=== PATIENT | female | born 1955 | race Caucasian/White ===

== ENCOUNTER 2019-11-11 12:22 | Outpatient (CLI) | payer MEDICARE, SELFPAY ==
--- NOTE | ~2019-11-11 | CT_ITS ---
EXAMINATION: CT abdomen pelvis w con DATE: 11/11/2019 13:52 INDICATION: Abdominal pain TECHNIQUE: Computed tomography (CT) of the abdomen and pelvis was performed with 100 cc Omnipaque 350 intravenous contrast. Automated exposure control and iterative reconstruction technique were employe d. Exam dose: 732.63 mGy-cm total exam DLP. COMPARISON: None. FINDINGS: The lung bases are clear of infiltrate or consolidation. Normal heart size. No pericardial effusion. Status post cholecystectomy. No bile duct or pancreatic duct dilatation. No hepatic, splenic, pancreatic, adrenal or renal space occupying mass lesion is detected. No bile d uct or pancreatic duct dilatation. 2.5 cm left renal cyst. No urinary tract or calculus or hydroureteronephrosis. Normal caliber of the abdominal aorta. No intraperitoneal or retroperitoneal or pelvic mass lesion o r lymphadenopathy. Normal appendix. Diverticulosis of the left colon. There is sigmoid colon wall thickening and pericolic fat stranding, There are abscess collections me asuring 2.3 x 5 cm, 1.2 x 1.7 cm, 1.4 x 1.7 cm. There is thickening of the urinary bladder wall, with a small adjacent abscess. There is diffuse idiopathic skeletal hyperostosis of the lower thoracic and lumbar spine. IMPRESSION: Sigmoid diverticulitis with multiple diverticular abscesses Reviewed, dictated and finalized at [facility]. Reviewed, dictated and finalized at [facility].
[2019-11-11 13:08] LABS: Basophils Absolute Auto 0.1 K/mm3 (0.0-0.1); Basophils Percent Auto 0.6 % (0.2-1.2); Eosinophils Absolute Auto 0.2 K/mm3 (0-0.3); Eosinophils Percent Auto 1.7 % (0-4.4); Hematocrit 37.8 % (37.0-47.0); Hemoglobin 11.8 g/dL (12.0-15.0); Immature Granulocyte Absolute 0.05 K/mm3 (0.00-0.031); Immature Granulocyte Percent A 0.4 % (0-0.5); Lymphocytes Absolute Auto 1.49 K/mm3 (0.9-3.2); Mean Corpuscular HGB Conc 31.2 g/dl (32-36); Mean Corpuscular Hemoglobin 25.8 pg (26-34); Mean Corpuscular Volume 82.5 fl (80-100); Mean Platelet Volume 8.8 fl (7.4-10.4); Monocytes Absolute Auto 0.9 K/mm3 (0.1-0.6); Monocytes Percent Auto 7.7 % (2.6-8.5); Neutrophils Absolute Auto 8.8 K/mm3 (1.3-6.7); Neutrophils Percent Auto 76.6 % (45.5-73.1); Platelet Count Result 408 k/mm3 (150-375); Red Blood Count 4.58 M/mm3 (4.2-5.4); Red Cell Distribution Width 14.1 % (11.5-14.5); White Blood Count 11.5 K/mm3 (4.5-10.0)
[2019-11-11 13:20] LABS: Alanine Aminotransferase 9 U/L (4-35); Albumin Level 3.9 g/dL (3.5-5.1); Alkaline Phosphatase 100 U/L (38-126); Amylase 47 U/L (30-110); Anion Gap 8 mmol/L (8-16); Aspartate Amino Transferase 17 U/L (14-36); Bilirubin,Total 0.6 mg/dL (0.2-1.3); Blood Urea Nitrogen 15 mg/dL (7-17); Calcium 9.2 mg/dL (8.4-10.2); Carbon Dioxide 31 mmol/L (22-30); Chloride 98 mmol/L (98-107); Cholesterol 150 mg/dL (0-200); Estimated Glomerular Filt Rate 50; Glucose 110 mg/dL (65-105); HDL Direct 31 mg/dL; Lipase 42 U/L (23-300); Potassium 3.9 mmol/L (3.4-5.0); Sodium 137 mmol/L (137-145); Triglycerides 118 mg/dL (<150)
[2019-11-11 13:31] LABS: LDL Cholesterol Direct 89 mg/dL
[2019-11-11 14:12] LABS: Vitamin D 25 Hydroxy 35.8 ng/mL
== END 2019-11-11 12:23 | disposition home or self-care (01) ==
PROVIDERS: PCP Internal Medicine; Visit Provider Internal Medicine
DX: E78.2 Mixed hyperlipidemia (principal); E55.9 Vitamin D deficiency, unspecified; K57.32 Diverticulitis of large intestine without perforation or abscess without bleeding; N28.1 Cyst of kidney, acquired
CPT/HCPCS: 36415; 74177; 80053; 80061; 82150; 82306; 83690; 85025; Q9967

== ENCOUNTER 2020-01-12 16:28 | Outpatient (CLI) | payer MEDICARE, SELFPAY ==
--- NOTE | ~2020-01-12 | CT_ITS ---
EXAMINATION: CT abdomen pelvis w con EXAM DATE: 01/12/2020 16:56 INDICATION: Diverticulitis of the colon. TECHNIQUE: Spiral CT of the abdomen and pelvis was performed following intravenous injection of 100 m L Omnipaque 350. Axial, coronal and sagittal images were reviewed. The dose-length product (DLP) fo r this examination was 977.42 mGy-cm. The exposure was tailored according to patient size (auto mA e xposure control), and iterative reconstruction (ASIR) was used as additional dose reduction technique . Comparison is made to prior examination from 11/11/2019. FINDINGS: There is rather extensive descending and sigmoid colonic diverticulosis again noted. Inflam mation within the central left aspect of the pelvis with multiple fistulous tracts identified to niko apsed abscess cavity (previously seen fluid within this pocket on prior study has essentially resolve d). This is also contiguous to the left ovary and left ureter likely causing stricturing of the left ureter, which would explain the mild left-sided hydroureteronephrosis. There is moderate sigmoid colo jaime wall thickening, probably edema. Inflammatory cancer not excludable. Also, probable fistulous tract identified to the bladder with diffuse bladder wall thickening in the right superolateral aspect contiguous to this. The liver, spleen, adrenal glands and pancreas are unremarkable. There are cholecystectomy clips. There is no retroperitoneal or pelvic lymphadenopathy. There is moderate scattered arterioscleroti c disease. The appendix is normal. The stomach and small bowel are unremarkable. There is expected amount of colonic stool. No free intraperitoneal gas. The heart is normal in size. There are no pericardial or pleural effusions. The lung bases are unremarkable. There are no osteoblastic or os teolytic lesions identified. IMPRESSION: 1. Pelvic phlegmon, with near resolution of previously seen abscess. Evidence of numerous pelvic fi stulous tracts to this phlegmon, and also probably to the bladder. Likely sequela from complicated di verticulitis. 2. Mild resultant left-sided hydroureteronephrosis. Reviewed, dictated and finalized at [facility]. IMPRESSION: 1. Pelvic phlegmon, with near resolution of previously seen abscess. Evidence of numerous pelvic fistulous tracts to this phlegmon, and also probably to the bladder. Likely sequela from complicated diverticulitis. 2. Mild resultant left-sided hydroureteronephrosis.
[2020-01-12 16:52] LABS: Estimated Glomerular Filt Rate 38
== END 2020-01-12 16:29 | disposition home or self-care (01) ==
PROVIDERS: PCP Internal Medicine; Visit Provider Internal Medicine
DX: K57.80 Diverticulitis of intestine, part unspecified, with perforation and abscess without bleeding (principal)
CPT/HCPCS: 74177; Q9967

== ENCOUNTER 2020-02-05 00:43 | Outpatient (CLI) | payer MEDICARE, SELFPAY ==
[2020-02-05 20:28] LABS: SARS-CoV-2 RNA PCR Negative
== END 2020-02-05 00:44 | disposition home or self-care (01) ==
LOC: ANHCOVIDDT 00:44
PROVIDERS: PCP Internal Medicine; Visit Provider Internal Medicine Gastroenterology
DX: Z01.812 Encounter for preprocedural laboratory examination (principal); Z20.828 Contact with and (suspected) exposure to other viral communicable diseases
CPT/HCPCS: 87635; C9803; U0003

== ENCOUNTER 2020-02-08 00:30 | Day surgery (SDC) | payer MEDICARE, SELFPAY ==
[2020-02-02 10:23] VITALS: BMI 28.5
[2020-02-08 07:27] VITALS: BP 146/54; PULSE 105; RESP 18; TEMP 37.4; O2SAT 95; BMI 31.5
[2020-02-08] MEDS: LACTATED RINGERS 1,000 ML 150 ML IV CONT (07:30)
--- NOTE | 2020-02-08 08:12 | P.CONGI_ITS ---
Assessment and Plan Assessment and plan (1) Diverticulitis of intestine with abscess: Code(s): K57.80 - Diverticulitis of intestine, part unspecified, with perforation and abscess without bleeding Status: Acute Assessment and Plan: Patient has had diverticulitis with pericolonic abscess. Has improved after antibiotics. Plan is for a high-fiber diet. Colonoscopy will be performed today to ensure resolution of infection. As well as no other pathology in this region. GI Consult Note Consult date/time: 02/08/20 08:12 HPI: Loreto Sawyer is a 64 year old female Seen in evaluation at the request of Dr. Rik Bates. patient has a recent bout of diverticulitis. Has had lo wer left lower quadrant abdominal pain initially October of 2019. A CT scan at that time revealed pericolonic diet diverticulitis and abscess. Patient had a follow-up CT scan raising the question of a possible fistula from: To: Period patient subsequently was given additional course of levofloxacin 500 mg p.o. daily for 10-14 days. She states since that time has had no additional pain. However taking preparation for colonoscopy did cause her to have recurrent left lower quadrant discomfort. Her bowel habits have remained normal. She denies any bleeding or fever. Review of Systems Review of Systems: All systems reviewed & are unremarkable except as noted in HPI and below PMFSH Family History Family History (Updated 04/23/17 @ 10:37 by DOCTOR UNKNOWN) Mother Hypertension Sibling Hypertension Family history of elevated blood lipids Family history of diabetes mellitus in first degree relative Father Cerebrovascular accident Family history of diabetes mellitus in first degree relative Diabetes mellitus Hypertension Family history of arthritis Social History Social History Smoking status: Never smoker Second hand tobacco smoke exposure: No Alcohol intake: never Living arrangements: alone Spiritual care concerns: No Meds Home Medications and Allergies Home Medications Medication Instructions Recorded Confirmed Type baclofen 10 mg tablet 10 mg PO DAILY 90 Days #270 tablet 06/25/19 02/08/20 Rx diclofenac sodium 75 mg 75 mg PO BID 90 Days #180 tablet 06/25/19 02/08/20 Rx tablet,delayed release pantoprazole 40 mg tablet,delayed 40 mg PO BID 90 Days #180 tablet 09/24/19 02/08/20 Rx release Allergies Allergy/AdvReac Type Severity Reaction Status Date / Time No Known Allergies Allergy Verified 02/08/20 07:26 Vital Signs Vital Signs - 24 hr 02/08/20 07:27 Temperature 99.4 F Pulse Rate 105 H Respiratory Rate 18 Blood Pressure 146/54 H Pulse Oximetry 95 Exam Narrative: Exam Narrative: Physical exam reveals patient to be alert. Vital signs stable. HEENT exam unremarkable. Lungs are clear to auscultation and percussion. Heart is without murmur or extra sounds. Abdominal exam bowel sounds are present soft nontender with no organomegaly. Digital external rectal exam is normal.
--- NOTE | 2020-02-08 08:22 | WPDANESEPPF ---
Anes - Initial Pre Proc Eval Procedure: Operation Date: 02/08/20 08:30 Proposed Procedures p Colonoscopy - Lance Guadalupe MD Date/Time: 02/08/20 08:22 Surgeon: Lance Guadalupe MD Pre Op Diagnosis: diverticulitis Patient Data Age: 64 Gender: F Height: 5 ft 5 in Weight: 86 kg Last Vital Signs Temp 37.4 C 02/08/20 07:27 Pulse 105 H 02/08/20 07:27 Resp 18 02/08/20 07:27 BP 146/54 H 02/08/20 07:27 Pulse Ox 95 02/08/20 07:27 Allergies Allergy/AdvReac Type Severity Reaction Status Date / Time No Known Allergies Allergy Verified 02/08/20 07:26 Home Medications Medication Instructions Recorded Confirmed Type baclofen 10 mg tablet 10 mg PO DAILY 90 Days #270 tablet 06/25/19 02/08/20 Rx diclofenac sodium 75 mg 75 mg PO BID 90 Days #180 tablet 06/25/19 02/08/20 Rx tablet,delayed release pantoprazole 40 mg tablet,delayed 40 mg PO BID 90 Days #180 tablet 09/24/19 02/08/20 Rx release Patient hx anesthesia problems: none Family hx anesthesia problems: none PMFSH Past Medical History Medical History Chronic GERD Hypertension Mixed hyperlipidemia Family History Family History Mother Hypertension Sibling Hypertension Family history of elevated blood lipids Family history of diabetes mellitus in first degree relative Father Cerebrovascular accident Family history of diabetes mellitus in first degree relative Diabetes mellitus Hypertension Family history of arthritis Social History Social History (Updated 02/08/20 @ 08:23 by Jaren Salinas MD) Smoking status: Current every day smoker Second hand tobacco smoke exposure: No Alcohol intake: never Living arrangements: alone Spiritual care concerns: No Anes - Eval Final PreProcedure Day of Procedure 02/08/20 08:22 Patient weight: obese Heart: regular rate and rhythm Lungs: decreased breath sounds Airway: Mallampati scale class II Neurological: alert and oriented Last oral intake: >/= 8 hours ASA classification: III Emergent: no Anesthetic plan: proceed Anesthesia type and monitoring: general GIVS and standard monitoring Informed Consent: The patient's anesthetic plan and its attendant risks and benefits were discussed with the patient/family/POA. Questions were solicited and answers provided to the satisfaction of the patient/family/POA.
[2020-02-08 09:15] VITALS: BP 108/47; PULSE 78; RESP 22; O2SAT 92
[2020-02-08 09:25] VITALS: BP 98/48; PULSE 81; RESP 20; O2SAT 95
[2020-02-08 09:35] VITALS: BP 111/58; PULSE 82; RESP 20; O2SAT 95
--- NOTE | 2020-02-08 09:37 | SUR.PHASEII ---
Appointment made for Dr. Lao's office. Facesheet and operative note faxed.
== END 2020-02-08 09:55 | disposition home or self-care (01) ==
PROVIDERS: PCP Internal Medicine; Visit Provider Internal Medicine Gastroenterology
PROC: 0DJD8ZZ Inspection of Lower Intestinal Tract, Via Natural or Artificial Opening Endoscopic (ICD-10-PCS; CPT 45378; principal; 2020-02-08 08:30)
DX: R93.3 Abnormal findings on diagnostic imaging of other parts of digestive tract (principal); K56.699 Other intestinal obstruction unspecified as to partial versus complete obstruction; K57.30 Diverticulosis of large intestine without perforation or abscess without bleeding; K21.9 Gastro-esophageal reflux disease without esophagitis; F17.200 Nicotine dependence, unspecified, uncomplicated
CPT/HCPCS: 45378; J2704; J7120

== ENCOUNTER 2020-02-24 11:14 | Outpatient (CLI) | payer MEDICARE, SELFPAY ==
[2020-02-24 12:06] LABS: Basophils Absolute Auto 0.1 K/mm3 (0.0-0.1); Basophils Percent Auto 0.5 % (0.2-1.2); Eosinophils Absolute Auto 0.1 K/mm3 (0-0.3); Eosinophils Percent Auto 1.1 % (0-4.4); Hematocrit 31.2 % (37.0-47.0); Hemoglobin 9.5 g/dL (12.0-15.0); Immature Granulocyte Absolute 0.05 K/mm3 (0.00-0.031); Immature Granulocyte Percent A 0.5 % (0-0.5); Lymphocytes Absolute Auto 1.06 K/mm3 (0.9-3.2); Lymphocytes Percent Auto 9.7 % (18.3-44.2); Mean Corpuscular HGB Conc 30.4 g/dl (32-36); Mean Corpuscular Hemoglobin 25.3 pg (26-34); Monocytes Absolute Auto 0.9 K/mm3 (0.1-0.6); Monocytes Percent Auto 8.2 % (2.6-8.5); Neutrophils Absolute Auto 8.7 K/mm3 (1.3-6.7); Platelet Count Result 338 k/mm3 (150-375); Red Blood Count 3.76 M/mm3 (4.2-5.4); Red Cell Distribution Width 14.8 % (11.5-14.5); White Blood Count 10.9 K/mm3 (4.5-10.0)
[2020-02-24 12:12] LABS: Add Urine Microscopic? YES; Appearance Urine Clear (Clear); Bilirubin Urine Negative (Negative); Blood Urine Negative (Negative); Color Urine Yellow (Yellow); Glucose Urine UA Negative (Negative); Ketones Urine Negative (Negative); Leukocyte Esterase Ur Negative LEU/UL (Negative); Mucus Urine Rare /lpf; Nitrate Urine Negative (Negative); Protein Urine 1+ mg/dL (Negative); RBC Urine 0-2 /hpf (0-2); Specific Grav Ur 1.015 (1.001-1.035); Squamous Epithelial Cell Urine Rare /hpf (Few); Urobilinogen Urine Negative mg/dL (<2.0); WBC Urine 0-3 /hpf
== END 2020-02-24 11:15 | disposition home or self-care (01) ==
PROVIDERS: PCP Internal Medicine; Visit Provider Surgery
DX: K57.32 Diverticulitis of large intestine without perforation or abscess without bleeding (principal)
CPT/HCPCS: 36415; 81001; 85025

== ENCOUNTER 2020-02-24 12:40 | Outpatient (CLI) | payer MEDICARE, SELFPAY ==
--- NOTE | ~2020-02-24 | CT_ITS ---
EXAMINATION: CT abdomen pelvis w con EXAM DATE: 02/24/2020 13:10 INDICATION: Abdominal pain, unspecified. TECHNIQUE: Spiral CT of the abdomen and pelvis was performed following intravenous injection of 100 m L Omnipaque 350. Axial, coronal and sagittal images were reviewed. The dose-length product (DLP) fo r this examination was 682.12 mGy-cm. The exposure was tailored according to patient size (auto mA e xposure control), and iterative reconstruction (ASIR) was used as additional dose reduction technique . Comparison is made to prior examination from 01/12/2020. FINDINGS: Again there is pelvic phlegmon, now containing a cavity with air-fluid level measuring abou t 3 cm in diameter. This is causing mass effect on the left ureter, mild left hydronephrosis. There a re multiple spiculations of soft tissue density extending between this and the rectosigmoid colon. Al so there is approximately 2 x 4 cm fluid pocket probably connected to this located more inferiorly, a nterior to the uterus and above the bladder. Probably complications of diverticulitis given the moder ate sigmoid diverticulosis. No free intraperitoneal air. The liver, spleen, adrenal glands and pancreas are unremarkable. Gallbladder is unremarkable. No bi liary obstruction. There is no retroperitoneal or pelvic lymphadenopathy. There is moderate scat tered arteriosclerotic disease. The appendix is normal. The stomach and small bowel are unremarkable. There is expected amount of c olonic stool. No free intraperitoneal gas. The heart is normal in size. There are no pericardial or pleural effusions. The lung bases are unremarkable. There are no osteoblastic or osteolytic les ions identified. IMPRESSION: 1. Small pelvic abscesses in location of previously described phlegmon likely complications of diver ticulitis. These are centrally located in the pelvis, would make percutaneous drainage challenging. E vidence of multiple fistulous tracts. 2. Mild left hydronephrosis unchanged. Reviewed, dictated and finalized at [facility]. [facility] [employer] TECHNICIAN IMPRESSION: 1. Small pelvic abscesses in location of previously described phlegmon likely complications of diverticulitis. These are centrally located in the pelvis, wou ld make percutaneous drainage challenging. Evidence of multiple fistulous tract s. 2. Mild left hydronephrosis unchanged.
[2020-02-24 13:05] LABS: Estimated Glomerular Filt Rate 41
== END 2020-02-24 12:41 | disposition home or self-care (01) ==
LOC: ANHIMG 12:45
PROVIDERS: PCP Internal Medicine; Visit Provider Surgery
DX: R10.9 Unspecified abdominal pain (principal)
CPT/HCPCS: 36415; 74177; 81001; 85025; Q9967

== ENCOUNTER 2020-06-21 09:47 | Outpatient (CLI) | payer MEDICARE, SELFPAY ==
--- NOTE | 2020-06-21 11:23 | ECG_ITS ---
Measurements Intervals [place] Rate: 64 P: 96 AR: 153 QRS: -23 QRSD: 101 T: 29 QT: 373 QTc: 386 Interpretive Statements SINUS RHYTHM POOR R WAVE PROGRESSION, ANTERIOR LEADS BORDERLINE T WAVE ABNORMALITY- ANTERIOR LEADS BASELINE ARTIFACT- I, II, III, AVR, AVL, AVF, V4 BORDERLINE ECG Electronically Signed On 06-21-2020 11:52:12 CDT by Jose F Lee D.O.
[2020-06-21 11:53] LABS: Basophils Absolute Auto 0.1 K/mm3 (0.0-0.1); Basophils Percent Auto 0.8 % (0.2-1.2); Eosinophils Absolute Auto 0.2 K/mm3 (0-0.3); Eosinophils Percent Auto 3.2 % (0-4.4); Hematocrit 40.5 % (37.0-47.0); Hemoglobin 12.9 g/dL (12.0-15.0); Immature Granulocyte Absolute 0.02 K/mm3 (0.00-0.031); Immature Granulocyte Percent A 0.3 % (0-0.5); Lymphocytes Absolute Auto 1.51 K/mm3 (0.9-3.2); Mean Corpuscular HGB Conc 31.9 g/dl (32-36); Mean Corpuscular Hemoglobin 27.6 pg (26-34); Mean Corpuscular Volume 86.5 fl (80-100); Mean Platelet Volume 9.3 fl (7.4-10.4); Monocytes Absolute Auto 0.5 K/mm3 (0.1-0.6); Monocytes Percent Auto 7.4 % (2.6-8.5); Neutrophils Absolute Auto 4.9 K/mm3 (1.3-6.7); Neutrophils Percent Auto 67.3 % (45.5-73.1); Platelet Count Result 230 k/mm3 (150-375); Red Blood Count 4.68 M/mm3 (4.2-5.4); Red Cell Distribution Width 15.2 % (11.5-14.5); White Blood Count 7.2 K/mm3 (4.5-10.0)
[2020-06-21 12:03] LABS: Alanine Aminotransferase 13 U/L (4-35); Alkaline Phosphatase 92 U/L (38-126); Anion Gap 5 mmol/L (8-16); Aspartate Amino Transferase 24 U/L (14-36); Bilirubin,Total 0.3 mg/dL (0.2-1.3); Blood Urea Nitrogen 23 mg/dL (7-17); Calcium 8.9 mg/dL (8.4-10.2); Carbon Dioxide 33 mmol/L (22-30); Chloride 105 mmol/L (98-107); Estimated Glomerular Filt Rate 41; Glucose 97 mg/dL (65-105); Magnesium 1.8 mg/dL (1.6-2.3); Potassium 4.4 mmol/L (3.4-5.0); Sodium 143 mmol/L (137-145)
--- NOTE | 2020-06-21 13:32 | PCWOUND ---
WOCN NOTE Patient to wound center for ostomy site marking. had patient lay flat, stand, bend to determine best ostomy location. marked both right and left abdomen. placed black marker X at site, covered with tegaderm dressing. Did basic ostomy education with patient. Will follow with patient post surgery on Saturday.
== END 2020-06-21 09:48 | disposition home or self-care (01) ==
LOC: ANHSURGERY 09:56
PROVIDERS: PCP Internal Medicine; Visit Provider Surgery
DX: K57.20 Diverticulitis of large intestine with perforation and abscess without bleeding (principal); F17.210 Nicotine dependence, cigarettes, uncomplicated; K57.92 Diverticulitis of intestine, part unspecified, without perforation or abscess without bleeding
CPT/HCPCS: 36415; 80053; 83735; 85025; 86850; 86900; 86901; 93005

== ENCOUNTER → 2020-06-24 00:28 | Outpatient (CLI) | payer MEDICARE, SELFPAY ==
[2020-06-24 17:44] LABS: SARS-CoV-2 RNA PCR Negative
== END ==
PROVIDERS: PCP Internal Medicine; Visit Provider Surgery
DX: Z01.812 Encounter for preprocedural laboratory examination (principal); Z20.822 Contact with and (suspected) exposure to COVID-19
CPT/HCPCS: C9803; U0003; U0005

== ENCOUNTER 2020-06-27 09:59 | Inpatient (IN) | payer MEDICARE, SELFPAY ==
[2020-06-21 10:23] VITALS: BP 158/69; PULSE 70; RESP 18; TEMP 36.3; O2SAT 97; BMI 28.8
--- NOTE | 2020-06-24 15:02 | WPDURCON ---
Assessment and Plan Assessment and plan (1) Pneumaturia: Code(s): R39.89 - Other symptoms and signs involving the genitourinary system Status: Acute (2) UTI (urinary tract infection): Qualifiers: Urinary tract infection type: acute cystitis Hematuria presence: with hematuria Qualified Code(s): N30.01 - Acute cystitis with hematuria Code(s): N39.0 - Urinary tract infection, site not specified Status: Acute (3) Diverticulitis of large intestine with abscess: Qualifiers: Diverticulitis bleeding: without bleeding Qualified Code(s): K57.20 - Diverticulitis of large intestine with perforation and abscess without bleeding Code(s): K57.20 - Diverticulitis of large intestine with perforation and abscess without bleeding Status: Acute Assessment and Plan: Cystoscopy, bilateral ureteral catheterization Urology Consult Note HPI Date Seen: 06/24/20 Requesting Physician: Farooq Lao MD Primary Care Provider: Rik Bates Jr., MD Consult Narrative Narrative: Loreto Sawyer is a 64 year old female with a history of recurrent diverticulitis. We've seen for recurrent UTI's and suggestion of possible pneumaturia - both of which are improved with suppressive abx. Presents for AMBREEN sigmoid colectomy. Review of Systems Cardiovascular: Cardiovascular: Denies chest pain, Denies lightheadedness, Denies palpitations and Denies dyspnea Respiratory: Respiratory: Denies dyspnea Gastrointestinal: Gastrointestinal: Denies diarrhea, Denies nausea and Denies vomiting Genitourinary: Genitourinary: Denies hematuria and Denies dysuria Endocrine: Endocrine: Denies palpitations PMFSH Past Medical History Medical History Chronic GERD History of blood clots Mixed hyperlipidemia Surgical History Surgical History Hx of cholecystectomy Hx of tonsillectomy Family History Family History Mother Hypertension High cholesterol Sibling Hypertension Family history of elevated blood lipids Family history of diabetes mellitus in first degree relative Father Cerebrovascular accident Family history of diabetes mellitus in first degree relative Diabetes mellitus Hypertension Family history of arthritis Social History Social History Smoking packs per day: 1.5 Smoking cigarettes per day: 30.0 Years smoked: 40 Smoking pack-years: 60.00 Smoking status: Light tobacco smoker Tobacco type: cigarettes Second hand tobacco smoke exposure: No Additional smoking assessment comments: down to 4 a day and trying to get to 3 a day before surgery Alcohol intake: current Substance use: never Gender identity (if verbalized by the patient): Female Spiritual care concerns: No Meds Home Medications and Allergies Home Medications Medication Instructions Recorded Confirmed Type cephalexin 250 mg capsule 250 mg PO HS 04/05/20 06/22/20 History diclofenac sodium 75 mg 75 mg PO BID PRN tablet 04/05/20 06/22/20 History tablet,delayed release pantoprazole 40 mg tablet,delayed 40 mg PO BID 90 Days #180 tablet 04/20/20 06/22/20 Rx release acetaminophen [Tylenol Extra 1,000 mg PO Q6H PRN 06/21/20 06/22/20 History Strength] baclofen 10 mg PO TID PRN 06/21/20 06/22/20 History ibuprofen [Advil] 400 mg PO Q6H PRN 06/21/20 06/22/20 History erythromycin 500 mg tablet 1 g PO Q8H #6 tablet 06/22/20 06/22/20 Rx neomycin 500 mg tablet 1 g PO Q6H #6 tablet 06/22/20 06/22/20 Rx nystatin 100,000 unit/gram topical 1 applic TOPICAL BID #15 g 06/22/20 06/22/20 Rx ointment Allergies Allergy/AdvReac Type Severity Reaction Status Date / Time No Known Allergies Allergy Verified 06/22/20 08:51 Exam Const: General: no acute
[2020-06-27] VITALS (16 sets, daily range): BP systolic 102–146; BP diastolic 42–72; PULSE 73–90; RESP 11–20; TEMP 35.6–36.8; O2SAT 91–100
--- NOTE | ~2020-06-27 | XR_ITS ---
EXAMINATION: XR stent kub - surgery DATE: 06/27/2020 08:24 INDICATION: Bilateral ureteral stent placement TECHNIQUE: Fluoroscopic images from a bilateral ureteral stent placement are submitted for review. 11 seconds of fluoroscopy time. 2 fluoroscopic images. FINDINGS: There are bilateral ureteral stents partially visualized. Please refer to procedural findings for det ails. IMPRESSION: 1. Bilateral internal ureteral stent placement. Please refer to real-time procedural findings for d etails. Reviewed, dictated and finalized at location B. IMPRESSION: 1. Bilateral internal ureteral stent placement. Please refer to real-time pro cedural findings for details.
[2020-06-27] MEDS: ACETAMINOPHEN 500 MG TABLET 1000 MG PO (06:51)
[2020-06-27] MEDS: KETOROLAC 15 MG/ML VIAL (*BKC) IV PUSH (06:51)
--- NOTE | 2020-06-27 06:54 | WPDANESEPPF ---
Anes - Initial Pre Proc Eval Procedure: Operation Date: 06/27/20 07:30 Proposed Procedures p Hand Assisted Laparoscopic Sigmoid Colon Resection With Possible Splenic Flexure Takedown With Anastomosis, Possible Colostomy - Farooq Lao MD s Stent Placement for Abdominal Surgery - Jordan Mao MD Date/Time: 06/27/20 06:54 Surgeon: Farooq Lao MD Pre Op Diagnosis: Diverticulitis Patient Data Age: 64 Gender: F Height: 5 ft 7.5 in Weight: 84.6 kg Last Vital Signs Temp 36.3 C L 06/21/20 10:23 Pulse 70 06/21/20 10:23 Resp 18 06/21/20 10:23 BP 158/69 H 06/21/20 10:23 Pulse Ox 97 06/21/20 10:23 Allergies Allergy/AdvReac Type Severity Reaction Status Date / Time No Known Allergies Allergy Verified 06/22/20 08:51 Home Medications Medication Instructions Recorded Confirmed Type cephalexin 250 mg capsule 250 mg PO HS 04/05/20 06/22/20 History diclofenac sodium 75 mg 75 mg PO BID PRN tablet 04/05/20 06/22/20 History tablet,delayed release pantoprazole 40 mg tablet,delayed 40 mg PO BID 90 Days #180 tablet 04/20/20 06/22/20 Rx release acetaminophen [Tylenol Extra 1,000 mg PO Q6H PRN 06/21/20 06/22/20 History Strength] baclofen 10 mg PO TID PRN 06/21/20 06/22/20 History ibuprofen [Advil] 400 mg PO Q6H PRN 06/21/20 06/22/20 History erythromycin 500 mg tablet 1 g PO Q8H #6 tablet 06/22/20 06/22/20 Rx neomycin 500 mg tablet 1 g PO Q6H #6 tablet 06/22/20 06/22/20 Rx nystatin 100,000 unit/gram topical 1 applic TOPICAL BID #15 g 06/22/20 06/22/20 Rx ointment Patient hx anesthesia problems: other (motion sickness) Family hx anesthesia problems: post op nausea/vomiting PMFSH Past Medical History Medical History Chronic GERD History of blood clots Mixed hyperlipidemia Surgical History Surgical History Hx of cholecystectomy Hx of tonsillectomy Family History Family History Mother Hypertension High cholesterol Sibling Hypertension Family history of elevated blood lipids Family history of diabetes mellitus in first degree relative Father Cerebrovascular accident Family history of diabetes mellitus in first degree relative Diabetes mellitus Hypertension Family history of arthritis Social History Social History Smoking packs per day: 1.5 Smoking cigarettes per day: 30.0 Years smoked: 40 Smoking pack-years: 60.00 Smoking status: Light tobacco smoker Tobacco type: cigarettes Second hand tobacco smoke exposure: No Additional smoking assessment comments: down to 4 a day and trying to get to 3 a day before surgery Alcohol intake: current Substance use: never Living arrangements: alone Gender identity (if verbalized by the patient): Female Spiritual care concerns: No Anes - Eval Final PreProcedure Day of Procedure 06/27/20 06:54 Patient weight: overweight Heart: regular rate and rhythm Lungs: decreased breath sounds Airway: Mallampati scale class II Neurological: alert and oriented Last oral intake: >/= 8 hours ASA classification: III Emergent: no Anesthetic plan: proceed Anesthesia type and monitoring: general ETT and standard monitoring Informed Consent: The patient's anesthetic plan and its attendant risks and benefits were discussed with the patient/family/POA. Questions were solicited and answers provided to the satisfaction of the patient/family/POA.
[2020-06-27] MEDS: LACTATED RINGERS 1,000 ML 30 ML IV CONT ×2 (06:58→13:55)
[2020-06-27] MEDS: ALVIMOPAN 12 MG CAPSULE PO ×2 (07:01→20:35)
[2020-06-27] MEDS: SCOPOLAMINE 1.5 MG PATCH TRANSDERM (07:05)
--- NOTE | 2020-06-27 07:24 | WPDHPUPDATE1 ---
History and Physical Update Update Date/Time: 06/27/20 07:24 History and Physical has been reviewed, including an updated exam of the patient. There are NO changes in the patient's condition. Risks, benefits, and alternatives have been discussed and questions answered. Patient agrees to proceed with procedure.
--- NOTE | 2020-06-27 07:37 | WPDHPUPDATE1 ---
History and Physical Update Update Date/Time: 06/27/20 07:37 History and Physical has been reviewed, including an updated exam of the patient. There are NO changes in the patient's condition. Risks, benefits, and alternatives have been discussed and questions answered. Patient agrees to proceed with procedure.
[2020-06-27] MEDS: ceFAZolin 2 GM/D5W 50 ML 2 GM/50 ML BAG IVPB (07:39)
[2020-06-27] MEDS: metroNIDAZOLE 500 MG/ISO 100ML 500 MG/100 ML BAG 100 MG IVPB ×2 (07:51→15:44)
[2020-06-27] MEDS: BUPIVACAINE/EPINEPHRINE 0.5% 30 ML VIAL 20 ML INFILTRATE (08:45)
--- NOTE | 2020-06-27 08:54 | PM.PROC ---
Procedure Note - Detailed Date of procedure: 06/27/20 Pre-op diagnosis: Diverticulitis Post-op diagnosis: same Procedure performed: Cystoscopy, bilateral ureteral catheterization Description of procedure: The patient was brought to the operative suite where she was prepped and draped in a routine sterile fashion while in a dorsal lithotomy position after the uneventful induction of a general anesthetic. Cystoscopy was undertaken with a 21F rigid cystoscope. The bladder neck and urethra were endoscopically normal. The bladder itself was endoscopically normal without foreign body or neoplasm. The bladder mucosa was without hyperemia. There was a single orthotopic ureteral orifice bilaterally with clear efflux of urine. 5F whistle-tip catheters were place in each ureter and advanced to the kidneys without difficulty. An 16F Kay catheter was placed and the ureteral catheters were fixed to the Kay catheter with silk ties. The patient tolerated this aspect of the procedure well. Anesthesia: GLMA Surgeon: Jordan Mao MD Project Drilling Engineer: None Estimated blood loss (mL): 0 Drains: Yes (Bilateral ureteral catheters) Packing: No Pathology: none sent Complications: No immediate complications Condition: stable Disposition: PACU
--- NOTE | 2020-06-27 14:02 | PM.PROC ---
Procedure Note - Detailed Date of procedure: 06/27/20 Pre-op diagnosis: Diverticulitis of sigmoid colon 1. Sigmoid diverticulitis with history of abscess and possible colovesical fistula Post-op diagnosis: same Procedure performed: Hand assisted Laparoscopic left colectomy with anastamosis Description of procedure: Hand assisted Laparoscopic left colectomy with anastamosis Patient was seen in the preop area. The suprapubic area marked for the site of possible hand assist incision. I again went over the risks, benefits, and possible complications of surgery with the patient and her family. We went over the results of the prep. I confirmed the patient had received Entereg. Following this the patient was brought to the operating room and placed on the operating table and secured to the table with a dyer bag padding the back. The patient was placed in the low lithotomy position with the legs in Samm stirrups. Dr. Mao operate on her 1st doing a cystoscopy and placing stents in the bilateral ureters. Please see his operative note for this Kay catheter was then placed by Dr. Mathew during his procedure. An OG tube was also placed. Following this 2 L of NS irrigant was used to irrigate out the rectum using a [place] catheter. Betadine was then infused into this catheter using approximately 500 cc. This was allowed to run back out. The catheter was then left in place in the distal rectum. Following this the abdomen was prepped and draped in usual sterile fashion sterile fashion. The perineum was prepped with Betadine. An under the buttocks and leg drapes were applied followed by 4 towels and then the laparotomy / laparoscopy drape applied. This exposed nicely the entire abdomen. Following this time-out was performed with the OR staff. This confirmed patient and site of proposed surgery as the abdomen. Following this local anesthetic was infiltrated into a transverse incision marked out 2 fingerbreadths above the level of the pubic bone. This was centered on the midline. It was approximately 8.5 cm in length. Following this an incision was made and carried down to the fascia overlying the rectus sheath in this area. The anterior rectus sheath was incised the length of this incision transversely. Following this two Kailyn's were placed on the upper side of the cut edge of the rectus. I then carefully dissected the rectus fascia off the underlying rectus muscles up to about prison from the incision to the umbilicus. This nicely exposed the fatty midline. Following this I also placed the Allis's on the fascia inferiorly and dissected approximately 3 cm inferiorly underneath the rectus sheath. Following this we tented up the midline fat with two DeBakey forceps and carefully entered the midline under direct vision. I then put my finger in the peritoneum and incised the peritoneum cephalad and inferiorly about an 8 cm length. This was our 1st entry into the abdomen and there was no significant adhesions under this incision. I swept my finger completely circumferentially underneath the abdominal wall and there were no significant adhesions. Following this the wound protector of the laparoscopic hand port was placed into the abdomen and then carefully rotated down to secure the hand port in place and protect the edges of the wound. I then placed my hand through wound protector and placed it up in underneath the area of the umbilicus. There were no adhesions in this area. A vertical incision was outlined in the crease just above the umbilicus and local anesthetic infused. Then an 11 blade knife was made to make a 12 mm vertical incision just superior to the umbilicus and a 12 mm laparoscopic port was placed into the abdomen with my hand underneath the anterior abdominal wall. Once this was adequately in place with a 20 cc balloon insufflated on its and it was pulled back and secured. We then insufflated the abdomen to 15 mmHg pressure CO2 by conchis
[2020-06-27] MEDS: FUROSEMIDE INJ 40 MG/4 ML VIAL 10 MG IV PUSH (14:32)
--- NOTE | 2020-06-27 14:37 | SUR.PHASEI ---
Discussed patient lethargy, poor urine output and wheezing with Dr Salinas who also examined patient. New orders received. Dr Lao also here and discussed status.
[2020-06-27] MEDS: ALBUTEROL SULFATE NEB 2.5 MG/3 ML INH 1.25 MG INHALATION (14:40)
[2020-06-27] MEDS: LACTATED RINGERS 1,000 ML 100 ML IV CONT (15:43)
--- NOTE | 2020-06-27 15:54 | ADMGEN ---
This patient, Loreto Sawyer, was admitted to 2 Medical Room 259-. Patient/family oriented to hospital policies and general routines including ID bracelet, bed and alarms, visiting hours, pain management, procedures, bathroom and other care routines, personal items, smoking policy, room service/diet, and visiting hours. Information on how to activate the Rapid Response Team has been discussed. Patient/Family are encouraged to report perceived risks to care and to ask questions if they do not understand what they are told or what they should do.
[2020-06-27 16:17] LABS: Estimated CRCL calculation 30 ml/min; Estimated Glomerular Filt Rate 27
[2020-06-27] MEDS: ACETAMINOPHEN 500 MG TABLET PO (20:40)
[2020-06-27] MEDS: HYDROcodone/acetaminophen (*CRX) 5-325 MG TABLET 1 TAB PO (23:01)
[2020-06-28] VITALS (7 sets, daily range): BP systolic 107–130; BP diastolic 43–64; PULSE 73–81; RESP 16–20; TEMP 36.3–37.1; O2SAT 90–97
[2020-06-28] MEDS: metroNIDAZOLE 500 MG/ISO 100ML 500 MG/100 ML BAG 100 MG IVPB ×3 (00:30→17:05)
[2020-06-28] MEDS: LACTATED RINGERS 1,000 ML 100 ML IV CONT ×2 (04:37→17:06)
[2020-06-28 05:34] LABS: Hematocrit 30.4 % (37.0-47.0); Hemoglobin 9.9 g/dL (12.0-15.0); Mean Corpuscular HGB Conc 32.6 g/dl (32-36); Mean Corpuscular Volume 85.9 fl (80-100); Platelet Count Result 163 k/mm3 (150-375); Red Blood Count 3.54 M/mm3 (4.2-5.4); Red Cell Distribution Width 15.3 % (11.5-14.5); White Blood Count 9.6 K/mm3 (4.5-10.0)
[2020-06-28 05:55] LABS: Alanine Aminotransferase 9 U/L (4-35); Albumin Level 3.2 g/dL (3.5-5.1); Alkaline Phosphatase 57 U/L (38-126); Anion Gap 5 mmol/L (8-16); Aspartate Amino Transferase 21 U/L (14-36); Bilirubin,Total 0.2 mg/dL (0.2-1.3); Blood Urea Nitrogen 32 mg/dL (7-17); Calcium 7.2 mg/dL (8.4-10.2); Carbon Dioxide 26 mmol/L (22-30); Chloride 104 mmol/L (98-107); Estimated CRCL calculation 36 ml/min; Estimated Glomerular Filt Rate 32; Glucose 111 mg/dL (65-105); Magnesium 1.4 mg/dL (1.6-2.3); Potassium 3.7 mmol/L (3.4-5.0); Sodium 135 mmol/L (137-145)
[2020-06-28] MEDS: ALVIMOPAN 12 MG CAPSULE PO ×2 (09:01→20:42)
[2020-06-28] MEDS: ENOXAPARIN 40 MG/0.4 ML SYRINGE SUB-Q (09:01)
[2020-06-28] MEDS: PANTOPRAZOLE 40 MG TABLET PO ×2 (09:23→20:42)
[2020-06-28] MEDS: MAGNESIUM OXIDE 400 MG TABLET PO (09:23)
[2020-06-28] MEDS: HYDROcodone/acetaminophen (*CRX) 5-325 MG TABLET 1 TAB PO (09:23)
--- NOTE | 2020-06-28 10:29 | PCWOUND ---
WOCN NOTE Patient did not received an ostomy, no follow up needed by WOCN.
--- NOTE | 2020-06-28 11:53 | PM.PNGS ---
Progress Note: A&P Assessment and Plan (1) Diverticulitis of large intestine with abscess: Qualifiers: Diverticulitis bleeding: without bleeding Qualified Code(s): K57.20 - Diverticulitis of large intestine with perforation and abscess without bleeding Code(s): K57.20 - Diverticulitis of large intestine with perforation and abscess without bleeding Status: Acute Assessment and Plan: POD1 and doing well. Await return of bowel function. Monitor GERALDO drain to bulb suction. Continue NPO with ice chips ans sips of water/tea/coffee. Encouraged increased activity, walking the halls, and IS use. Pathology pending. 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 No evidence of a fistula during cystoscopy yesterday. Will leave Kay catheter in place for today. See plan above. (3) Tobacco abuse: Code(s): Z72.0 - Tobacco use Status: Acute Assessment and Plan: Encouraged cessation. Nicotine patch has been ordered. (4) BMI 28.0-28.9,adult: Code(s): Z68.28 - Body mass index [BMI] 28.0-28.9, adult Status: Acute Additional Plan I discussed the plan of care with Dr. Lao. Subjective Subjective Date/Time Seen: 06/28/20 11:20 Post Op day: 1 (AMBREEN left colectomy) Patient reports: no flatus and no bowel movement Interval history: Patient seen this morning and doing well. She reports pain has been well controlled with current analgesics. She denies nausea or vomiting. Has only had ice chips so far orally. Still with Kay in place. She reports sitting in the chair this morning and walking the [place], which she tolerated well. No other complaints. Review of Systems Review of Systems: All systems reviewed & are unremarkable except as noted in HPI and below Constitutional: Constitutional: Reports as per HPI, Reports no additional constitutional complaints, Denies chills and Denies fever(s) Cardiovascular: Cardiovascular: Reports no additional cardiovascular complaints, Denies chest pain, Denies leg edema and Denies dyspnea Respiratory: Respiratory: Reports no additional respiratory complaints, Denies cough and Denies dyspnea Gastrointestinal: Gastrointestinal: Reports as per HPI and Reports no additional gastrointestinal complaints Neurologic: Reports system reviewed and no additional complaints, except as documented, Denies confusion and Denies focal weakness Exam Const: General: comfortable, no acute distress, alert and awake Orientation/consciousness: patient oriented x3 Resp: Effort & Inspection: normal respiratory effort Auscultation: clear to auscultation bilaterally Cardio: Rate: regular rate Rhythm: regular rhythm GI: Inspection: incision (Abdominal incisions clean and dry, glue intact.) and other (mildly disended) GI Palp: Yes Soft to palpation and Yes Tenderness to palpation present (GI) (incisional) Auscultation: Hypoactive bowel sounds present Rectal Exam: deferred Other: GERALDO drain with serosanguineous drainage Urinary Catheter: Urinary Catheter: patent and draining and urine clear Skin: General skin exam: normal color Rashes: no rashes Neuro: General: moves all extremities and no focal motor deficits Cranial nerves: Yes CN's II-XII intact bilaterally Extrem: General: normal to inspection, no clubbing, cyanosis or edema and no calf tenderness Psych: Mental Status: mental status grossly normal Attitude: cooperative Insight: Good insight present (Psych) Judgement: Good judgement present (Psych) Objective Data Vital Signs Vital Signs: Vital Signs - 24 hr 06/27/20 13:55 06/27/20 14:10 06/27/20 14:25 Temperature 98.3 F Pulse Rate 78 76 80 Respiratory Rate 12 11 L 13 Blood Pressure 114/51 L 116/52 L 114/62 Pulse Oximetry 100 99 97 06/27/20 14:34 06/27/20 14:40 06/27/20 14:42 Temperature Pulse Rate 83 78 85 Res
[2020-06-29] VITALS (7 sets, daily range): BP systolic 120–144; BP diastolic 46–70; PULSE 69–87; RESP 16–20; TEMP 36–36.8; O2SAT 90–97
[2020-06-29] MEDS: LACTATED RINGERS 1,000 ML 100 ML IV CONT (03:27)
[2020-06-29] MEDS: HYDROcodone/acetaminophen (*CRX) 5-325 MG TABLET 1 TAB PO (05:57)
[2020-06-29 06:51] LABS: Hematocrit 32.8 % (37.0-47.0); Hemoglobin 10.3 g/dL (12.0-15.0)
[2020-06-29 07:09] LABS: Anion Gap 4 mmol/L (8-16); Blood Urea Nitrogen 25 mg/dL (7-17); Calcium 7.9 mg/dL (8.4-10.2); Carbon Dioxide 29 mmol/L (22-30); Chloride 105 mmol/L (98-107); Estimated CRCL calculation 38 ml/min; Estimated Glomerular Filt Rate 35; Glucose 85 mg/dL (65-105); Potassium 3.7 mmol/L (3.4-5.0); Sodium 138 mmol/L (137-145)
[2020-06-29] MEDS: MAGNESIUM OXIDE 400 MG TABLET PO (08:27)
[2020-06-29] MEDS: ENOXAPARIN 40 MG/0.4 ML SYRINGE SUB-Q (08:27)
[2020-06-29] MEDS: ALVIMOPAN 12 MG CAPSULE PO ×2 (08:27→21:40)
[2020-06-29] MEDS: PANTOPRAZOLE 40 MG TABLET PO ×2 (08:27→21:40)
--- NOTE | 2020-06-29 13:04 | PM.PNGS ---
Progress Note: A&P Assessment and Plan (1) Diverticulitis of large intestine with abscess: Qualifiers: Diverticulitis bleeding: without bleeding Qualified Code(s): K57.20 - Diverticulitis of large intestine with perforation and abscess without bleeding Code(s): K57.20 - Diverticulitis of large intestine with perforation and abscess without bleeding Status: Acute Assessment and Plan: POD2 and continues to improve. Now passing gas and had a BM this morning. Will advance to clear liquid diet. Monitor GERALDO drain to bulb suction. Encouraged to continue to increase activity, walking the halls, and IS use. Pathology pending. 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 No evidence of a fistula during cystoscopy. (3) Tobacco abuse: Code(s): Z72.0 - Tobacco use Status: Acute (4) BMI 28.0-28.9,adult: Code(s): Z68.28 - Body mass index [BMI] 28.0-28.9, adult Status: Acute Additional Plan I discussed the plan of care with Dr. Lao. Will repeat BMP tomorrow morning. Creatinine coming down. Urine output improving. Subjective Subjective Date/Time Seen: 06/29/20 13:04 Post Op day: 2 (AMBREEN left colectomy) Patient reports: no new complaints, flatus and bowel movement Interval history: Patient doing well again today. Tolerating walking in the halls. Reports flatus and one small liquid BM this morning. Denies nausea or vomiting. Pain well-controlled. No other complaints. Review of Systems Review of Systems: All systems reviewed & are unremarkable except as noted in HPI and below Constitutional: Constitutional: Reports as per HPI, Reports no additional constitutional complaints, Denies chills and Denies fever(s) Cardiovascular: Cardiovascular: Reports no additional cardiovascular complaints, Denies chest pain, Denies leg edema and Denies dyspnea Respiratory: Respiratory: Reports no additional respiratory complaints, Denies cough and Denies dyspnea Gastrointestinal: Gastrointestinal: Reports as per HPI and Reports no additional gastrointestinal complaints Neurologic: Reports system reviewed and no additional complaints, except as documented, Denies Abnormal speech present and Denies focal weakness Exam Const: General: comfortable, no acute distress, alert and awake Orientation/consciousness: patient oriented x3 Resp: Effort & Inspection: normal respiratory effort Auscultation: clear to auscultation bilaterally Cardio: Rate: regular rate Rhythm: regular rhythm GI: Inspection: non-distended and incision (Abdominal incisions clean and dry, glue intact.) GI Palp: Yes Soft to palpation and Yes Tenderness to palpation present (GI) (incisional) Auscultation: normal bowel sounds Rectal Exam: deferred Other: GERALDO with serosanguineous drainage Urinary Catheter: Urinary Catheter: patent and draining and urine clear Skin: General skin exam: normal color Rashes: no rashes Neuro: General: moves all extremities and no focal motor deficits Cranial nerves: Yes CN's II-XII intact bilaterally Speech: normal speech Extrem: General: no clubbing, cyanosis or edema and no calf tenderness Psych: Mental Status: mental status grossly normal Attitude: cooperative Insight: Good insight present (Psych) Judgement: Good judgement present (Psych) Objective Data Vital Signs Vital Signs: Vital Signs - 24 hr 06/28/20 14:00 06/28/20 18:00 06/28/20 21:20 Temperature 97.7 F 98.7 F 97.4 F L Pulse Rate 75 81 73 Respiratory Rate 16 16 18 Blood Pressure 127/48 L 115/47 L 114/43 L Pulse Oximetry 95 93 91 06/29/20 00:10 06/29/20 05:07 06/29/20 09:27 Temperature 97.8 F 97.8 F Pulse Rate 76 79 Respiratory Rate 20 18 Blood Pressure 121/46 L 120/68 Pulse Oximetry 90 97 92 Intake/Output Intake/Output: Intake & Output 06/26/20 06/27/20 06/28/20 06/29/20
[2020-06-29] MEDS: LACTATED RINGERS 1,000 ML 75 ML IV CONT (14:17)
[2020-06-30 02:00] VITALS: BP 114/54; PULSE 72; RESP 20; TEMP 36.6; O2SAT 94
[2020-06-30 04:12] VITALS: BP 114/54; PULSE 72; RESP 20; TEMP 36.6; O2SAT 94
[2020-06-30 05:54] LABS: Mean Platelet Volume 9.2 fl (7.4-10.4); Platelet Count Result 184 k/mm3 (150-375)
[2020-06-30 06:08] LABS: Anion Gap 2 mmol/L (8-16); Blood Urea Nitrogen 19 mg/dL (7-17); Carbon Dioxide 31 mmol/L (22-30); Chloride 107 mmol/L (98-107); Estimated CRCL calculation 51 ml/min; Estimated Glomerular Filt Rate 50; Glucose 98 mg/dL (65-105); Potassium 3.4 mmol/L (3.4-5.0); Sodium 140 mmol/L (137-145)
[2020-06-30] MEDS: MAGNESIUM OXIDE 400 MG TABLET PO (09:26)
[2020-06-30] MEDS: ALVIMOPAN 12 MG CAPSULE PO (09:26)
[2020-06-30] MEDS: ENOXAPARIN 40 MG/0.4 ML SYRINGE SUB-Q (09:26)
[2020-06-30] MEDS: PANTOPRAZOLE 40 MG TABLET PO (09:26)
[2020-06-30 10:00] VITALS: BP 136/50; PULSE 76; RESP 16; TEMP 36.3; O2SAT 97
[2020-06-30] MEDS: HYDROcodone/acetaminophen (*CRX) 7.5-325 MG TABLET 1 TAB PO (11:47)
--- NOTE | 2020-06-30 14:25 | PM.DS ---
DS: Admitting Diagnosis Admitting Diagnosis Admitting Diagnosis: Acute diverticulitis of the large intestine Possible colovesical fistula Tobacco abuse BMI 29 DS: Discharge Diagnosis Discharge Diagnosis (1) Diverticulitis large intestine w/o perforation or abscess w/o bleeding: Code(s): K57.32 - Diverticulitis of large intestine without perforation or abscess without bleeding Status: Acute Assessment and Plan: 06/27/20 Hand assisted Laparoscopic left colectomy with anastamosis by Dr. Lao, and Cystoscopy with bilateral ureteral catheterization by Dr. Mao Pathology showed: SIGMOID COLON, SIGMOIDECTOMY: - DIVERTICULOSIS WITH ACUTE DIVERTICULITIS, PERICOLONIC ABSCESS, RUPTURED DIVERTICULUM, ACUTE SEROSITIS, AND SEROSAL ADHESIONS. - SESSILE SERRATED POLYP, 2.0 CM IN GREATEST DIMENSION. - SEVEN BENIGN PERICOLONIC LYMPH NODES (0/7). - NO EVIDENCE OF NEOPLASM. B. COLON DONUTS, ANASTOMOSIS: - CHANGES CONSISTENT WITH CHRONIC DIVERTICULOSIS. - NEGATIVE FOR ACUTE INFLAMMATION AND NEOPLASM. 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 Cystoscopy showed no evidence of fistula. She was taking antibiotics prior to surgery for prevention of UTI due to the colovesical fistula, which we will stop on discharge after Dr. Lao spoke with Dr. Mao. (3) Tobacco abuse: Code(s): Z72.0 - Tobacco use Status: Acute Assessment and Plan: Patient encouraged to continue with cessation. She has now been without nicotine since prior to surgery and has not required the Nicotine patch. She wishes to quit and plans to stay away from smoking even after discharge. We discussed the importance of this and how smoking can affect her recovery/healing process. (4) BMI 28.0-28.9,adult: Code(s): Z68.28 - Body mass index [BMI] 28.0-28.9, adult Status: Acute DS: Summary Hospital Course Reason for hospitalization: Loreto is a 64-year-old smoker who was initially evaluated in our office by Dr. Lao in January of 2020. She had a history of diverticulitis and had been dealing with LLQ abdominal pain since October 2019. She had a CT scan of the abd/pelvis through her PCP on 11-11-19 which showed sigmoid diverticulitis with multiple diverticular abscesses. She was placed on antibiotics and this seemed to help her problems. She started to have LLQ pain again in mid December. She was seen by her PCP, another CT scan was ordered. CT scan abd/pel showed pelvic phlegmon, with near resolution of previously seen abscess. Evidence of numerous pelvic fistulous tracts to this phlegmon, and also probably to the bladder. Likely sequela from complicated diverticulitis. She was then referred to Dr. Guadalupe for a colonoscopy. Colonoscopy on 02/08/20 showed multiple medium diverticula in the mid sigmoid and in the distal sigmoid. The diverticula appeared at a depth of 20 mm from the anus. The diverticula are not actively bleeding. There was also findings of moderate benign-appearing stenosis in the distal sigmoid colon, which was not traversed. This prompted referral to our office for surgical resection. After office evaluation by Dr. Lao, he recommended hand-assisted laparoscopic left colectomy with anastomosis with a coordination with Urology for ureteral catheterization for surgery. The surgery was deferred during the COVID pandemic due to limitations on scheduling outpatient procedures that will require inpatient hospitalization after. She was instructed to continue a bowel regimen and attempt to quit smoking prior to surgery. She was re-evaluated in April and surgery was scheduled for 06/27/20. Hospital Course: She was taken for a AMBREEN left colectomy by Dr. Lao on 06/27/20. Dr. Mao performed a cystoscopy with ureteral catheterization prior to Dr. Lao's case. The surgery went well with no immediate c
== END 2020-06-30 16:30 | disposition home or self-care (01) | DRG 330 ==
LOC: ANH2MED 15:28
PROVIDERS: Nurse Practitioner Family; Urology; Admitting Provider Surgery; PCP Internal Medicine; Visit Provider Surgery
PROC: 0D1E4Z4 Bypass Large Intestine to Cutaneous, Percutaneous Endoscopic Approach (ICD-10-PCS; principal; 2020-06-27 07:30)
PROC: 0T9880Z Drainage of Bilateral Ureters with Drainage Device, Via Natural or Artificial Opening Endoscopic (ICD-10-PCS; 2020-06-27 07:30)
DX: K57.20 Diverticulitis of large intestine with perforation and abscess without bleeding (principal); N32.1 Vesicointestinal fistula; N30.01 Acute cystitis with hematuria; R39.89 Other symptoms and signs involving the genitourinary system; K21.9 Gastro-esophageal reflux disease without esophagitis; E78.2 Mixed hyperlipidemia; F17.210 Nicotine dependence, cigarettes, uncomplicated; Z79.899 Other long term (current) drug therapy
CPT/HCPCS: 36415; 80048; 80053; 82565; 83735; 85014; 85018; 85027; 85049; 88305; 88307; 94640; A9270; C1729; C1758; C1769; C1887; C9803; J0690; J1100; J1170; J1650; J1885; J1940; J2250; J2405; J2704; J2710; J3010; J7030; J7120; U0003; U0005

== ENCOUNTER 2020-10-13 14:50 | Outpatient (CLI) | payer MEDICARE, SELFPAY ==
--- NOTE | ~2020-10-13 | MM_ITS ---
EXAMINATION: MM screening marlene BI w [facility] HISTORY: Screening mammogram TECHNIQUE: Craniocaudal and mediolateral oblique 3-D tomosynthesis images were obtained and synthetic 2-D images were generated. CAD analysis was submitted and interpreted. COMPARISON: No prior mammogram is available for comparison at this institution. BREAST PARENCHYMAL COMPOSITION: The breasts are almost entirely fatty. FINDINGS: There is no evidence of suspicious mass, calcification, or architectural distortion to sugg est malignancy in either breast. IMPRESSION: 1. No mammographic evidence of malignancy. 2. Recommend routine screening mammography in one year. BI-RADS Category 1: Negative Reviewed, dictated and finalized at location A.
--- NOTE | ~2020-10-13 | CT_ITS ---
EXAMINATION:CT lung screening DATE: 10/13/2020 15:29 INDICATION: Personal history of tobacco dependence. Smoker who quit 3 months ago with 40 pack year hi story. TECHNIQUE: Computed tomography (CT) of the chest was performed without intravenous contrast. Automate d exposure control and iterative reconstruction technique were employed. The dose-length product (DLP ) was 248.38 mGy-cm. COMPARISON: CT abdomen and pelvis 02/24/2020 FINDINGS: Emphysema is noted. There is mild scarring and peripheral right upper lobe. There is mild a telectasis in right upper lobe and right middle lobe. A calcified right lung nodule is consistent wit h old granulomatous disease. There is a 4 mm nodule in right upper lobe. No pleural effusion. The hea rt size is normal. There are coronary artery calcifications. No pericardial effusion. There are marques es of cholecystectomy. There are bridging endplate osteophytes at multiple levels in the spine, consi stent with diffuse idiopathic skeletal hyperostosis (DISH). IMPRESSION: 1. Lung-RADS category 2: Benign appearance or behavior. Continue annual screening with noncontrast lo w-dose chest CT in 12 months. Reviewed, dictated and finalized at location A. IMPRESSION: 1. Lung-RADS category 2: Benign appearance or behavior. Continue annual screeni ng with noncontrast low-dose chest CT in 12 months.
== END 2020-10-13 14:51 | disposition home or self-care (01) ==
LOC: ANHIMG 14:51
PROVIDERS: PCP Internal Medicine; Visit Provider Internal Medicine
DX: Z87.891 Personal history of nicotine dependence (principal); Z12.31 Encounter for screening mammogram for malignant neoplasm of breast
CPT/HCPCS: 71271; 77063; 77067

== ENCOUNTER 2020-12-13 10:47 | Emergency (ER) | payer MEDICARE, SELFPAY ==
[2020-12-13 10:55] VITALS: BP 173/76; PULSE 80; RESP 16; TEMP 36.8; O2SAT 100
--- NOTE | 2020-12-13 10:58 | ED.URI ---
HPI - URI/Sore Throat General Chief Complaint: Upper Respiratory Infection Stated Complaint: sore throat/runny nose/starr/no taste Time Seen by Provider: 12/13/20 10:58 Source: patient and RN notes reviewed History of Present Illness HPI Narrative: Patient is a 65-year-old female who presents the urgent care with complaints of loss of taste on Saturday. Patient states that she has issues with her taste ever since being on long-term Flagyl in the past. Patient states she has had intermittent symptoms of headache, sore throat and postnasal drainage. Patient states that symptoms started approximately 2 days ago. Denies of any known contact with Covid. States that no one else in the home has been sick. Patient has been vaccinated with the Materna vaccine. Patient has been using Tylenol as needed for her symptoms. No other acute complaints. No acute distress noted. Patient aware of the plan of care. Some parts of this dictation were generated by voice recognition software and may contain typographical and/or grammatical inaccuracies. Related Data Allergies Allergy/AdvReac Type Severity Reaction Status Date / Time No Known Allergies Allergy Verified 09/29/20 10:03 Review of Systems Review of Systems: CONSTITUTIONAL: Denies fever, chills, or sweats. EYES: Denies visual changes, redness, or discharge. ENT: Reports of rhinorrhea, sore throat and postnasal drainage, loss of taste CARDIOVASCULAR: Denies chest pain, palpitations, or edema. RESPIRATORY: Denies cough or dyspnea. GASTROINTESTINAL: Denies abdominal pain, nausea, vomiting, or diarrhea. GENITOURINARY: Denies dysuria or hematuria. SKIN: Denies rash or itching. MUSCULOSKELETAL: Denies back pain, joint pain, or myalgia. NEUROLOGIC: Reports of headaches All other systems reviewed are negative, except as documented in HPI. [facility] Past Medical History Medical History (Updated 12/13/20 @ 11:20 by ARNOLDO Gallego) Chronic GERD History of blood clots Mixed hyperlipidemia Tobacco abuse Surgical History Surgical History History of colectomy Hand assisted Laparoscopic left colectomy with anastamosis Hx of cholecystectomy Hx of tonsillectomy Family History Family History Mother Hypertension High cholesterol Sibling Hypertension Family history of elevated blood lipids Family history of diabetes mellitus in first degree relative Father Cerebrovascular accident Family history of diabetes mellitus in first degree relative Diabetes mellitus Hypertension Family history of arthritis Social History Social History (Updated 09/29/20 @ 10:05 by Diandra Sam MA) Smoking packs per day: 1 Smoking cigarettes per day: 20.0 Years smoked: 40 Smoking pack-years: 40.00 Smoking status: Former smoker Tobacco type: cigarettes Second hand tobacco smoke exposure: No Smoking end date: 06/30/20 Alcohol intake: current Alcohol use details: Social Substance use: never Substance use type: does not use Gender identity (if verbalized by the patient): Female Spiritual care concerns: No Comments At the time of my signature, I reviewed and agree with the nursing past medical, surgical, social, and family history. There is no relevant family history pertinent to the patient complaint. Exam Narrative: GENERAL: This is a well-nourished, well-developed patient, in no apparent distress. HEAD: normocephalic, atraumatic. EYES: PERRL. Sclera clear/white. Vision is grossly intact. EARS: External ears normal, auditory canals clear and without drainage, TMs normal without perforation. Hearing grossly intact. NOSE: External nose normal with no obvious nasal discharge, nares without redness, no rhinorrhea. THROAT: Mucous membranes moist, posterior pharynx clear. Moderate postnasal drainage NECK: Neck supple CARDIOVASCULAR: Regular rate and rhythm
[2020-12-14 22:41] LABS: SARS-CoV-2 RNA PCR Negative
== END 2020-12-13 11:27 | disposition home or self-care (01) ==
PROVIDERS: Emergency Provider Nurse Practitioner Family; PCP Internal Medicine
DX: J06.9 Acute upper respiratory infection, unspecified (principal); Z20.822 Contact with and (suspected) exposure to COVID-19; Z87.891 Personal history of nicotine dependence; K21.9 Gastro-esophageal reflux disease without esophagitis; E78.2 Mixed hyperlipidemia; D75.9 Disease of blood and blood-forming organs, unspecified
CPT/HCPCS: 87426; 99213; C9803; G0463; U0003; U0005

== ENCOUNTER 2021-06-07 14:03 | Outpatient (CLI) | payer MEDICARE, SELFPAY ==
--- NOTE | ~2021-06-07 | CT_ITS ---
EXAMINATION: CT brain wo/w con EXAM DATE: 06/07/2021 14:39 INDICATION: R51.9 - Headache, unspecified. TECHNIQUE: Spiral CT of the head was performed without contrast. Axial, coronal and sagittal images were reviewed. Patient was then injected with 100 cc Omnipaque 350 intravenous contrast and reimaged. Postcontrast axial, coronal, sagittal reformatted images reviewed. The dose-length product (DLP) fo r this examination was 1210.67 mGy-cm. The exposure was tailored according to patient size, and iter ative reconstruction (ASIR) was used as additional dose reduction technique. Comparison is made to pr ior examination from 10/15/2018. FINDINGS: There is no acute intraparenchymal hemorrhage. No evidence of intraparenchymal brain mass lesion. No evidence of acute infarction. There is no mass effect or midline shift. The ventricles are normal in size. There are no extra-axial collections. There are no acute calvarial fractures. T he orbits are unremarkable. Soft tissue is unremarkable. The visualized sinuses and mastoid air marty ls are well aerated. There are no areas of abnormal enhancement on the postcontrast images. IMPRESSION: Normal head CT examination. Reviewed, dictated and finalized at location A. P DIRECTOR IMPRESSION: Normal head CT examination.
[2021-06-07 14:30] LABS: Estimated Glomerular Filt Rate 35
== END 2021-06-07 14:04 | disposition home or self-care (01) ==
LOC: ANHIMG 14:06
PROVIDERS: PCP Internal Medicine; Visit Provider Internal Medicine
DX: R51.9 Headache, unspecified (principal)
CPT/HCPCS: 70470; Q9967

== ENCOUNTER → 2021-06-29 13:25 | Outpatient (CLI) | payer MEDICARE, SELFPAY ==
--- NOTE | ~2021-06-29 | XR_ITS ---
XR hip LT 2V w AP pelvis DATE: 06/29/2021 14:00 INDICATION: Left hip pain TECHNIQUE: AP and lateral views of left hip. AP pelvis. COMPARISON: None FINDINGS: Osteopenia. Bilateral hip osteoarthritis, moderate on the right, severe on the left. The pubic symphysis and sacroiliac joints are intact. No pelvic fracture or bone destruction. There i s enthesopathy of the iliac crests. Degenerative changes of the lumbar spine. Subtle radiopaque apparent bowel sutures overlie the pelvis. IMPRESSION: Bilateral hip osteoarthritis, moderate on the right, severe on the left Osteopenia Reviewed, dictated and finalized at location A.
--- NOTE | ~2021-06-29 | XR_ITS ---
EXAMINATION: XR knee LT 2V DATE: 06/29/2021 13:59 INDICATION: Left knee pain. TECHNIQUE: 2 views of left knee standing were obtained. COMPARISON: Left knee radiographs 05/17/2004 FINDINGS: Bone alignment is normal. No fracture. There is mild tricompartmental osteoarthritis charac terized by marginal osteophytes. No joint space narrowing. There is a small knee joint effusion. IMPRESSION: 1. Mild left knee osteoarthritis. 2. Small left knee joint effusion. Reviewed, dictated and finalized at location A.
== END ==
PROVIDERS: PCP Internal Medicine; Visit Provider Nurse Practitioner
DX: M85.852 Other specified disorders of bone density and structure, left thigh (principal); M16.0 Bilateral primary osteoarthritis of hip; M17.12 Unilateral primary osteoarthritis, left knee; M25.462 Effusion, left knee
CPT/HCPCS: 73502; 73560

== ENCOUNTER 2021-09-04 12:32 | Outpatient (CLI) | payer MEDICARE, SELFPAY ==
--- NOTE | ~2021-09-04 | XR_ITS ---
EXAMINATION: XR lg joint inject/asp w image DATE: 09/04/2021 13:19 INDICATION: Left hip pain. TECHNIQUE: A time-out was performed to verify the patient's name, date of , and procedure to b e performed. The procedure including the risks, benefits, and alternatives was discussed with the pat ient. Risks discussed included bleeding and infection. The patient understood the risks and agreed to proceed. The skin overlying the left hip joint was prepped and draped in usual sterile fashion. An esthetic was administered with 1% lidocaine subcutaneously. A 22 G needle was advanced under fluoros copic guidance into the joint. Subsequently, injectate consisting of 5 mL 1% lidocaine and 2 mL 10 mg /mL Kenalog was instilled. The needle was removed and the entry site was cleaned and dressed. There were no immediate complications. Fluoroscopy exposure time was 0.0 minutes. The total number of imag es was 1. FINDINGS: Real-time fluoroscopy demonstrates the needle in the left hip joint. Patient's pain prior t o procedure: 5/10. Patient's pain following the procedure: 0/10. IMPRESSION: 1. Fluoroscopy guided left hip joint injection of local anesthetic and steroid with decrease in the p atient's presenting pain. Reviewed, dictated and finalized at location A. IMPRESSION: 1. Fluoroscopy guided left hip joint injection of local anesthetic and steroid with decrease in the patient's presenting pain.
== END 2021-09-04 12:33 | disposition home or self-care (01) ==
PROVIDERS: PCP Internal Medicine; Visit Provider Nurse Practitioner
DX: M25.552 Pain in left hip (principal)
CPT/HCPCS: 20610; 77002; J3301

== ENCOUNTER 2021-11-09 08:32 | Outpatient (CLI) | payer MEDICARE, SELFPAY ==
--- NOTE | ~2021-11-09 | MM_ITS ---
EXAMINATION: MM screening marlene BI w [facility] HISTORY: Screening mammogram TECHNIQUE: Craniocaudal and mediolateral oblique 3-D tomosynthesis images were obtained and synthetic 2-D images were generated. CAD analysis was submitted and interpreted. COMPARISON: 10/13/2020 BREAST PARENCHYMAL COMPOSITION: The breasts are almost entirely fatty. FINDINGS: There is no suspicious mass, calcification, or architectural distortion to suggest malignan cy in either breast. There has been no suspicious interval change. IMPRESSION: 1. No mammographic evidence of malignancy. 2. Recommend routine screening mammography in one year. BI-RADS Category 1: Negative Reviewed, dictated and finalized at location A.
== END 2021-11-09 08:33 | disposition home or self-care (01) ==
LOC: ANHIMG 08:34
PROVIDERS: PCP Internal Medicine; Visit Provider Internal Medicine
DX: Z12.31 Encounter for screening mammogram for malignant neoplasm of breast (principal)
CPT/HCPCS: 77063; 77067

== ENCOUNTER 2021-12-28 10:35 | Outpatient (CLI) | payer MEDICARE, SELFPAY ==
--- NOTE | ~2021-12-28 | XR_ITS ---
EXAMINATION: XR lg joint inject/asp w image DATE: 12/28/2021 11:13 INDICATION: Left hip pain. TECHNIQUE: A time-out was performed to verify the patient's name, date of , and procedure to b e performed. The procedure including the risks, benefits, and alternatives was discussed with the pat ient. Risks discussed included bleeding and infection. The patient understood the risks and agreed to proceed. The skin overlying the left joint was prepped and draped in usual sterile fashion. Anesth etic was administered with 1% lidocaine subcutaneously. A 22 G needle was advanced under fluoroscopi c guidance into the joint. Subsequently, injectate consisting of 2 mL 1% lidocaine and 1 mL 80 mg/mL Depo-Medrol was instilled. The needle was removed and the entry site was cleaned and dressed. Ther e were no immediate complications. Fluoroscopy exposure time was 0.1 minutes. The total number of ratna ges was 1. FINDINGS: Real-time fluoroscopy demonstrates the needle in the left hip joint. Patient's pain prior t o procedure:6/10. Patient's pain following the procedure: 0/10. IMPRESSION: 1. Fluoroscopy guided left hip joint injection of local anesthetic and steroid with decrease in the p atient's presenting pain. Reviewed, dictated and finalized at location A. IMPRESSION: 1. Fluoroscopy guided left hip joint injection of local anesthetic and steroid with decrease in the patient's presenting pain.
== END 2021-12-28 10:36 | disposition home or self-care (01) ==
PROVIDERS: PCP Internal Medicine; Visit Provider Orthopaedic Surgery
DX: M25.552 Pain in left hip (principal); G89.29 Other chronic pain
CPT/HCPCS: 20610; 77002; J1040; Q9966

== ENCOUNTER → 2022-01-26 08:42 | Outpatient (CLI) | payer MEDICARE, SELFPAY ==
--- NOTE | ~2022-01-26 | MR_ITS ---
EXAMINATION: MR knee LT wo con DATE: 01/26/2022 09:17 INDICATION: Left knee pain. TECHNIQUE: Magnetic resonance imaging (MRI) of the left knee was performed without intravenous contra st. Sequences included axial PD-weighted FS FSE, coronal PD-weighted FSE and PD-weighted FS FSE, sagi ttal PD-weighted FSE, and sagittal T2-weighted FS FSE. COMPARISON: Left knee radiographs 11/17/2021 FINDINGS: Medial compartment: Medial meniscus is normal. Medial compartment cartilage is normal. Lateral compartment: Lateral meniscus is normal. Lateral compartment cartilage is normal. Patellofemoral compartment: There is shallow partial-thickness cartilage loss of patellar medial facet and median ridge. There is deep partial thickness cartilage loss of patellar lateral facet with mild subchondral edema-like mar row signal intensity. There is cartilage surface irregularity of trochlea. Osteophytes are noted. Ligaments and tendons: Anterior and posterior cruciate ligaments are normal. There are changes of prior sprains of medial co llateral ligament and fibular collateral ligament characterized by thickening and increased signal in tensity proximally. There is mild patellar tendinopathy. There are enthesophytes at the patellar tend on and quadriceps tendon. Fluid: There is a small knee joint effusion. There is mild prepatellar and superficial infrapatellar bursiti s. IMPRESSION: 1. Moderate chondrosis of patellofemoral compartment. 2. Small knee joint effusion. Reviewed, dictated and finalized at location A.
== END ==
PROVIDERS: PCP Internal Medicine; Visit Provider Orthopaedic Surgery
DX: M25.462 Effusion, left knee (principal)
CPT/HCPCS: 73721

== ENCOUNTER 2022-04-04 09:52 | Outpatient (CLI) | payer MEDICARE, SELFPAY ==
[2022-04-04 10:29] LABS: Hematocrit 40.2 % (37.0-47.0); Hemoglobin 13.3 g/dL (12.0-15.0)
[2022-04-04 10:37] LABS: Urine Cotinine NEGATIVE
[2022-04-04 10:38] LABS: Albumin Level 4.3 g/dL (3.5-5.1); Estimated Glomerular Filt Rate 50; Glucose 112 mg/dL (65-110)
== END 2022-04-04 09:53 | disposition home or self-care (01) ==
LOC: ANHLAB 09:57
PROVIDERS: PCP Internal Medicine; Visit Provider Orthopaedic Surgery
DX: M16.12 Unilateral primary osteoarthritis, left hip (principal); Z79.899 Other long term (current) drug therapy; E78.2 Mixed hyperlipidemia; N18.30 Chronic kidney disease, stage 3 unspecified
CPT/HCPCS: 80307; 82040; 82565; 82947; 85014; 85018

== ENCOUNTER 2022-06-04 09:40 | Outpatient (CLI) | payer MEDICARE, SELFPAY ==
[2022-06-04 11:06] LABS: Basophils Absolute Auto 0.1 K/mm3 (0.0-0.1); Basophils Percent Auto 1.2 % (0.2-1.2); Eosinophils Absolute Auto 0.2 K/mm3 (0-0.3); Eosinophils Percent Auto 3.4 % (0-4.4); Hematocrit 42.3 % (37.0-47.0); Hemoglobin 13.4 g/dL (12.0-15.0); Immature Granulocyte Absolute 0.02 K/mm3 (0.00-0.031); Immature Granulocyte Percent A 0.3 % (0-0.5); Lymphocytes Absolute Auto 1.73 K/mm3 (0.9-3.2); Lymphocytes Percent Auto 25.9 % (18.3-44.2); Mean Corpuscular HGB Conc 31.7 g/dl (32-36); Mean Corpuscular Hemoglobin 28.2 pg (26-34); Mean Corpuscular Volume 88.9 fl (80-100); Mean Platelet Volume 9.2 fl (7.4-10.4); Monocytes Absolute Auto 0.5 K/mm3 (0.1-0.6); Monocytes Percent Auto 7.8 % (2.6-8.5); Neutrophils Absolute Auto 4.1 K/mm3 (1.3-6.7); Neutrophils Percent Auto 61.4 % (45.5-73.1); Platelet Count Result 218 k/mm3 (150-375); Red Blood Count 4.76 M/mm3 (4.2-5.4); Red Cell Distribution Width 13.8 % (11.5-14.5); White Blood Count 6.7 K/mm3 (4.5-10.0)
[2022-06-04 11:17] LABS: INR 1.1; Prothrombin Time 13.4 Seconds (11.1-14.7)
[2022-06-04 11:18] LABS: Partial Thromboplastin Time 25.7 SECONDS (22.3-36.8)
[2022-06-04 11:20] LABS: Anion Gap 6 mmol/L (8-16); Blood Urea Nitrogen 34 mg/dL (7-17); Calcium 9.5 mg/dL (8.4-10.2); Carbon Dioxide 31 mmol/L (22-30); Chloride 102 mmol/L (98-107); Estimated Glomerular Filt Rate 45; Glucose 106 mg/dL (65-110); Potassium 4.8 mmol/L (3.4-5.0); Sodium 139 mmol/L (137-145)
[2022-06-04 11:22] LABS: Albumin Level 4.5 g/dL (3.5-5.1)
[2022-06-04 11:31] LABS: Urine Cotinine NEGATIVE
[2022-06-04 12:29] LABS: Hemoglobin A1C 5.2 % (<5.7)
== END 2022-06-04 09:41 | disposition home or self-care (01) ==
LOC: ANHSURGERY 09:45
PROVIDERS: Anesthesiology; PCP Internal Medicine; Visit Provider Orthopaedic Surgery
DX: M17.12 Unilateral primary osteoarthritis, left knee (principal); M16.12 Unilateral primary osteoarthritis, left hip; N18.30 Chronic kidney disease, stage 3 unspecified; Z01.818 Encounter for other preprocedural examination
CPT/HCPCS: 80048; 80307; 82040; 83036; 85025; 85610; 85730; 87081

== ENCOUNTER 2022-06-26 01:49 | Day surgery (SDC) | payer MEDICARE, SELFPAY ==
[2022-06-04 10:04] VITALS: BP 138/61; PULSE 68; RESP 16; TEMP 36.3; O2SAT 94; BMI 34.4
--- NOTE | 2022-06-04 10:18 | PC.NURSE ---
Report to the Outpatient Waiting Room, entrance under the green pavilion located off [facility], at time __6:00AM on date _06/26/22 . Planned Procedure Time: __7:30AM . Time changes happen often and if your time is changed the preop area will call you the afternoon before. - You and your visitor will be asked to self-screen and do not enter if you have any COVID symptoms. - Only one visitor is requested with a max of two and NO children visitors are allowed at this time. - The patient visitor may be requested to leave or wait in car when not with patient due to distancing restrictions. - A mask is optional within the hospital at this time. Patients may have clear liquids (water, carbonated beverages, clear teas, apple juice) until 3 hours prior to surgery with a maximum of 20 ounces. - No food from midnight until time of surgery Take the following medications with a SIP of water the morning of surgery: ___NONE DO NOT STOP ANY OF YOUR OTHER PRESCRIPTION MEDICATIONS PRIOR TO SURGERY ?EXCEPT THE FOLLOWING Medications to discontinue per physician ___HOLD ALL VITAMINS/SUPPLEMENTS 3 DAYS PRE-OP Date to take last dose____06/22/22 Please no make-up, nail italian, hairspray, perfume, deodorant, or body powder the day of surgery. No jewelry (including any body piercings) or valuables the day of surgery, leave them at home. Please take a shower or bath the night before, or the morning of, surgery with an antibacterial soap. Wear comfortable, loose fitting clothing. Children are encouraged to wear pajamas. - Jewelry must be removed prior to entering the operating room. Rings and piercings that are not removed may be cut off. - The hospital will not accept responsibility for valuables. - Please leave all valuables, including medications, at home the day of surgery. If you are going home after surgery, a licensed pile driver must drive you home. - NO public transportation without another adult if you receive anesthesia. - We recommend that an adult stay with you for 24 hours following discharge. - We also recommend that you do not drive, make important decision, drink alcoholic beverages, or take any drugs that were not prescribed by your health care provider for at least 24 hours after your discharge time. Follow any additional instructions given to you from your surgeon. If you or anyone in your household have experienced Covid symptoms in the past week, please notify your surgeon or the nurse liaison at the phone number below for possible testing. Telephone instructions given to _PATIENT_and asked if any additional questions and then verbalized understanding. Patient advised to call surgeon office or pre surgery nurse liaison [phone] if any additional questions.
[2022-06-26] VITALS (9 sets, daily range): BP systolic 116–149; BP diastolic 49–103; PULSE 50–81; RESP 12–20; TEMP 36.2–36.6; O2SAT 91–99
--- NOTE | ~2022-06-26 | XR_ITS ---
EXAMINATION: XR hip LT min 2V DATE: 06/26/2022 10:01 INDICATION: Total left hip arthroplasty. Postop. TECHNIQUE: 2 views of left hip were obtained. COMPARISON: Left hip radiographs 06/04/2022 FINDINGS: There is a total left hip arthroplasty in near-anatomic alignment. No fracture. There is ga s in the soft tissues and joint, consistent with recent surgery. IMPRESSION: 1. Total left hip arthroplasty in near-anatomic alignment. Reviewed, dictated and finalized at location A.
[2022-06-26] MEDS: ACETAMINOPHEN 500 MG TABLET 1000 MG PO (06:46)
[2022-06-26] MEDS: LACTATED RINGERS 1,000 ML 30 ML IV CONT ×2 (07:00→09:40)
[2022-06-26] MEDS: TRANEXAMIC ACID 1,000MG/ISO100 1,000 MG/100 ML BAG 200 MG IVPB (07:07)
--- NOTE | 2022-06-26 07:21 | WPDANESEPPF ---
Anes - Initial Pre Proc Eval Procedure: Operation Date: 06/26/22 07:30 Proposed Procedures p Left Total Hip Arthroplasty - Bro Busby MD Date/Time: 06/26/22 07:21 Surgeon: Bro Busby MD Pre Op Diagnosis: oa left hip Patient Data Age: 66 Gender: F Height: 1.67 m Weight: 96.7 kg Last Vital Signs Temp 36.3 C L 06/04/22 10:04 Pulse 68 06/04/22 10:04 Resp 16 06/04/22 10:04 BP 138/61 06/04/22 10:04 Pulse Ox 94 06/04/22 10:04 O2 Del Method Room Air 06/04/22 10:04 Allergies Allergy/AdvReac Type Severity Reaction Status Date / Time metronidazole [From Flagyl] AdvReac Mild loss of Verified 06/26/22 06:17 taste Home Medications Medication Instructions Recorded Confirmed Type cholecalciferol (vitamin D3) 50 50 mcg PO DAILY 02/16/21 06/26/22 History mcg (2,000 unit) capsule pantoprazole 40 mg tablet,delayed 40 mg PO BID 90 days #180 tabs 10/26/21 06/26/22 Rx release acetaminophen 650 mg 1,300 mg PO QAM 01/10/22 06/26/22 History tablet,extended release (Tylenol Arthritis Pain) Cbd Cream 1 appful topical TID 06/04/22 06/26/22 History curcumin-phosphatidylcholine 500 500 mg PO DAILY 06/04/22 06/26/22 History mg capsule Patient hx anesthesia problems: none Family hx anesthesia problems: post op nausea/vomiting Results Review: All pre-operative results and documents have been reviewed as part of the pre-operative evaluation. [facility] Past Medical History Medical History Allergies Chronic GERD History of blood clots Mixed hyperlipidemia Tobacco abuse Surgical History Surgical History History of carpal tunnel release History of colectomy Hand assisted Laparoscopic left colectomy with anastamosis Hx of cholecystectomy Hx of tonsillectomy Family History Family History Mother Hypertension High cholesterol Heart disease Sibling Hypertension Family history of elevated blood lipids Family history of diabetes mellitus in first degree relative Father Cerebrovascular accident Family history of diabetes mellitus in first degree relative Diabetes mellitus Hypertension Family history of arthritis Social History Social History Smoking packs per day: 1 Smoking cigarettes per day: 20.0 Years smoked: 50 Smoking pack-years: 50.00 Smoking status: Former smoker Tobacco type: cigarettes Second hand tobacco smoke exposure: No Smoking end date: 06/26/20 Alcohol intake: current Drinks per week: 1 Alcohol use details: Social Substance use: never Substance use type: does not use Lack of Transportation: No Lack of Food: Never True Current Housing: I Have Housing Concerned About Future Housing: No Difficulty Paying Gas/Electric Bills: No Difficulty Paying for Meds: No Currently Unemployed: No Education: Bachelor's Degree Difficulty w/ Childcare or Family Care: No Living arrangements: alone Occupation/Education: retired Gender identity (if verbalized by the patient): Female Spiritual care concerns: No Anes - Eval Final PreProcedure Day of Procedure 06/26/22 07:21 Patient weight: obese Heart: regular rate and rhythm Lungs: decreased breath sounds Airway: Mallampati scale class II Neurological: alert and oriented Last oral intake: >/= 8 hours ASA classification: III Emergent: no Anesthetic plan: proceed Anesthesia type and monitoring: general ETT and standard monitoring Results Review: All pre-operative results and documents have been reviewed as part of the pre-operative evaluation. Informed Consent: The patient's anesthetic plan and its attendant risks and benefits were discussed with the patient/family/POA. Questions were solicited and answers provi
--- NOTE | 2022-06-26 07:28 | WPDHPUPDATE1 ---
History and Physical Update Update Date/Time: 06/26/22 07:28 History and Physical has been reviewed, including an updated exam of the patient. There are NO changes in the patient's condition. Risks, benefits, and alternatives have been discussed and questions answered. Patient agrees to proceed with procedure.
[2022-06-26] MEDS: ceFAZolin 2 GM/D5W 50 ML 2 GM/50 ML BAG IVPB ×2 (07:50→16:49)
[2022-06-26] MEDS: fentaNYL CITRATE INJ (*CRX) 100 MCG/2 ML VIAL 25 MCG IV PUSH ×4 (10:05→10:34)
--- NOTE | 2022-06-26 10:14 | W.PM.PROC2 ---
Procedure Note - Detailed Date of Procedure 06/26/22 Pre-op Diagnosis oa left hip Post-op Diagnosis Same Procedure Performed Left Total Hip Arthroplasty Surgeon Bro Busby MD [employer] Laly Watson PA-C Anesthesia General Findings Satisfactory bone quality. Acetabular component 20? anteversion. 10 degree elevated liner used for added stability. Femoral anteversion approximately 10?. Implant sizes, and position matched the preoperative templating. Description of Procedure The patient was given preoperative antibiotics. A general anesthetic was administered. The patient was carefully placed in the lateral decubitus position on the PEG board. The shoulders and hips were carefully positioned for component and leg length positioning reference. The hip was prepped and draped in the usual sterile fashion. A longitudinal incision was created over the posterior aspect of the greater trochanter. Careful dissection was brought down through the deep fascia with electrocautery. A minimally invasive optimized posterior approach to the hip was performed. The short external rotators and capsule were taken down in an L-shaped capsulotomy. The tissue was tagged for later repair using number 2 high strength suture. The femoral neck was measured and taken in situ. The femoral head was removed. The acetabulum was carefully exposed. The inferior capsule was released. The labrum was resected. The acetabulum was sequentially reamed to the intended cup size. The cup was impacted into position with excellent press-fit. Typical anatomic landmarks, including the bony contact points as well as the inferior transverse acetabular ligament were used to confirm cup positioning with preoperative templating. Attention was turned to the femur, which was carefully exposed. The hip was reamed and then broached sequentially. Excellent press-fit was obtained with the broach. The hip was trialed. Measurements were utilized, including the lesser trochanter as well as the center of the femoral head and the tip of the trochanter, and excellent assessment of the offset and leg lengths were confirmed. The real component was impacted into position. Trialing confirmed appropriate leg length and offset with soft tissue balancing as well apparent feel of the leg, both at the knee and the heel. Soft tissues were assessed using the the iliotibial band. Reduction of the posterior capsule and external rotators were also used as a secondary assessment. The hip was copiously irrigated with pulsatile lavage antibiotic solution periodically throughout the procedure. The real components were then assembled and reduced. The hip was stable throughout typical maneuvers, including extension, external rotation to 70 degrees, the position of sleep as well as flexion to 90 degrees with internal rotation past 45 degrees. The shake test confirmed stability without impingement. Osteophytes were removed as necessary. The short external rotators and capsule were repaired back to the posterior trochanter through drill holes. The deep fascia was repaired with running number 2 Quill suture, followed by 0 Stratafix suture and 2-0 Stratafix suture in the dermis. Steri-Strips were placed on the skin, followed by a sterile silver occlusive dressing. There were no complications. Meticulous hemostasis was maintained with the AquaMantys device. The patient was brought to the recovery room in stable condition. There were no complications. Physician assistant corporation counsel, Laly Watson PA-C, required for surgery; including patient positioning, draping, tissue retraction, maintaining instrument position, hip dislocation/ relocation, wound closure, and dressing placement. Implants The Accolade II hip stem, 127 degree size 4 , was utilized with excellent press-fit. The 52 mm Trident II acetabular component was impacted with excellent press-fit stability. 10 degree elevated polyethylene liner. The +0, 36 mm Biolox
[2022-06-26] MEDS: SODIUM CHLORIDE 0.9% IV 1,000 ML 125 ML IV CONT (12:21)
--- NOTE | 2022-06-26 12:53 | ADMGEN ---
This patient, Loreto Sawyer, was admitted to [facility] Surg Room 306-02. Patient/family oriented to hospital policies and general routines including ID bracelet, bed and alarms, visiting hours, pain management, procedures, bathroom and other care routines, personal items, smoking policy, room service/diet, and visiting hours. Information on how to activate the Rapid Response Team has been discussed. Patient/Family are encouraged to report perceived risks to care and to ask questions if they do not understand what they are told or what they should do.
[2022-06-26] MEDS: oxyCODONE HCL (*CRX) 5 MG TAB IR PO (13:41)
[2022-06-26] MEDS: predniSONE 5 MG TABLET PO (18:16)
[2022-06-26] MEDS: oxyCODONE HCL (*CRX) 5 MG TAB IR 10 MG PO (18:27)
[2022-06-26] MEDS: RIVAROXABAN 10 MG TABLET PO (18:28)
[2022-06-26] MEDS: SENNA/DOCUSATE SODIUM TABLET 2 TAB PO (18:48)
[2022-06-26] MEDS: PANTOPRAZOLE 40 MG TABLET PO (20:16)
[2022-06-27] MEDS: ceFAZolin 2 GM/D5W 50 ML 2 GM/50 ML BAG IVPB ×2 (00:02→07:55)
[2022-06-27 05:49] VITALS: BP 119/47; PULSE 76; RESP 16; TEMP 36.6; O2SAT 93
[2022-06-27 06:24] LABS: Basophils Percent Auto 0.2 % (0.2-1.2); Hematocrit 34.9 % (37.0-47.0); Hemoglobin 11.1 g/dL (12.0-15.0); Immature Granulocyte Absolute 0.04 K/mm3 (0.00-0.031); Immature Granulocyte Percent A 0.3 % (0-0.5); Lymphocytes Absolute Auto 0.91 K/mm3 (0.9-3.2); Lymphocytes Percent Auto 7.4 % (18.3-44.2); Mean Corpuscular HGB Conc 31.8 g/dl (32-36); Mean Corpuscular Hemoglobin 28.8 pg (26-34); Mean Corpuscular Volume 90.6 fl (80-100); Mean Platelet Volume 9.5 fl (7.4-10.4); Monocytes Absolute Auto 1.2 K/mm3 (0.1-0.6); Monocytes Percent Auto 9.9 % (2.6-8.5); Neutrophils Percent Auto 82.2 % (45.5-73.1); Platelet Count Result 204 k/mm3 (150-375); Red Blood Count 3.85 M/mm3 (4.2-5.4); White Blood Count 12.2 K/mm3 (4.5-10.0)
[2022-06-27 06:25] LABS: Anion Gap 4 mmol/L (8-16); Blood Urea Nitrogen 23 mg/dL (7-17); Calcium 8.2 mg/dL (8.4-10.2); Carbon Dioxide 31 mmol/L (22-30); Chloride 103 mmol/L (98-107); Estimated CRCL calculation 51 ml/min; Estimated Glomerular Filt Rate 50; Glucose 128 mg/dL (65-110); Potassium 4.4 mmol/L (3.4-5.0); Sodium 138 mmol/L (137-145)
[2022-06-27] MEDS: PANTOPRAZOLE 40 MG TABLET PO (07:53)
[2022-06-27] MEDS: predniSONE 5 MG TABLET PO (07:53)
[2022-06-27] MEDS: SENNA/DOCUSATE SODIUM TABLET 2 TAB PO (07:53)
[2022-06-27] MEDS: polyethylene glycoL 3350 17 GM POWD.PACK PO (07:53)
[2022-06-27] MEDS: oxyCODONE HCL (*CRX) 5 MG TAB IR 10 MG PO (07:55)
--- NOTE | 2022-06-27 08:36 | PM.DS ---
DS: Admitting Diagnosis Discharge Date 06/27/22 Admitting Diagnosis OA Left hip DS: Discharge Diagnosis Discharge Diagnosis Plan Postop day 1: Total hip arthroplasty. Patient tolerated procedure well. No complications. Pain manageable with pain medication. No numbness or tingling. We had a lengthy discussion regarding postoperative wound care, limitations, expectations, and exercises. Patient shows good understanding. Patient has had initial physical therapy and is tolerating it well. DVT prophylaxis: Xarelto due to history of blood clots and poor circulation in the operative leg. Short frequent walks. Compression socks. Pain medication: Percocet. Prednisone. No NSIADs due to Xarelto. Patient has followup appointment with Dr. Busby in 3 weeks DS: Summary Hospital Course Reason for hospitalization: Total hip arthroplasty Hospital Course: Patient tolerated procedure well. Has had initial PT/OT. Status at Discharge Functional status at discharge: uses cane/walker Overall status at discharge: patient is progressing back to baseline Time Spent with Patient Time attestation: Total time spent providing and/or coordinating discharge services: Exam Narrative: Overweight 66 y/o female. Resting comfortably in chair. Wearing compression socks bilaterally. Dressing dry and intact with no drainage. Mild swelling. No ecchymosis. No erythema. No hematoma. Range of motion limited due to pain. Calf nontender. Thigh nontender. Neurologic status intact. No varicosities. Distal pulses palpable. DS: Data Data Completed and Pending Labs on day of discharge: Labs from last 24 hours 06/27/22 06/27/22 05:37 05:37 WBC 12.2 H RBC 3.85 L Hgb 11.1 L Hct 34.9 L MCV 90.6 MCH 28.8 MCHC 31.8 L RDW 14.0 Plt Count 204 MPV 9.5 Immature Gran % (Auto) 0.3 Neut % (Auto) 82.2 H Lymph % (Auto) 7.4 L Drew % (Auto) 9.9 H Eos % (Auto) 0.0 Baso % (Auto) 0.2 Lymph # (Auto) 0.91 Drew # (Auto) 1.2 H Eos # (Auto) 0.0 Baso # (Auto) 0.0 Abs Immat Gran (auto) 0.04 H Absolute Neuts (auto) 10.0 H Absolute Nucleated RBC 0.0 Nucleated RBC % 0.0 Sodium 138 Potassium 4.4 Chloride 103 Carbon Dioxide 31 H Anion Gap 4 L BUN 23 H D Creatinine 1.10 H Estim Creat Clear Calc 51 Estimated GFR 50 L Glucose 128 H Calcium 8.2 L Discharge Plan Discharge Patient Disposition: Home, Self-Care Discharge Instructions: See green instruction sheets Patient Instructions: Pain Management (DC), Precautions after Total Joint Replacement Surgery (DC), Total Hip Replacement (DC) Stand Alone Forms: General Discharge Instructions Follow-up/Referrals: Laly Watson PA [Physician Oral Surgery Physician] - Discharge Medications: New prednisone 5 mg tablet 5 mg PO DAILY 21 Days Qty: 21 0RF Xarelto 10 mg tablet 10 mg PO DAILY 14 Days Qty: 14 0RF oxycodone-acetaminophen 5-325 mg tablet 1 - 2 tablet PO Q4-6H MDD 6 PRN (Reason: pain) Qty: 30 0RF Continued curcumin-phosphatidylcholine 500 mg Capsule 500 mg PO DAILY Cbd Cream 1 appful topical TID Rx Instructions: APPLIES LT KNEE AND LT HIP cholecalciferol (vitamin D3) 50 mcg (2,000 unit) capsule 50 mcg PO DAILY pantoprazole 40 mg tablet,delayed release (DR/EC) 40 mg PO BID 90 Days Qty: 180 2RF Held acetaminophen [Tylenol Arthritis Pain] 650 mg tablet extended release 1,300 mg PO QAM Hold Instructions: Resume on 07/17/22. No more than 3,000 mg Tylenol in 24 hours
--- NOTE | 2022-06-27 10:26 | WPDANESPN ---
Anes - Prog Note Post-Op Date/Time: 06/27/22 10:26 Cardiovascular status: normal Respiratory status: normal Airway patency: baseline Mental status: baseline Post-Op hydration status: normal Vital Signs: Last Vital Signs Temp 36.6 C 06/27/22 05:49 Pulse 76 06/27/22 05:49 Resp 16 06/27/22 05:49 BP 119/47 L 06/27/22 05:49 Pulse Ox 93 06/27/22 05:49 O2 Del Method Room Air 06/27/22 08:00 O2 Flow Rate 8 06/26/22 10:15 Pain Score (VAS): 06/08 I/O: Intake & Output 06/26/22 06/27/22 06/27/22 23:59 07:59 15:59 Intake Total 1866 150 290 Balance 1866 150 290 Laboratory Tests 06/27/22 05:37 06/27/22 05:37 06/27/22 06/27/22 05:37 05:37 WBC 12.2 H RBC 3.85 L Hgb 11.1 L Hct 34.9 L MCV 90.6 MCH 28.8 MCHC 31.8 L RDW 14.0 Plt Count 204 MPV 9.5 Immature Gran % (Auto) 0.3 Neut % (Auto) 82.2 H Lymph % (Auto) 7.4 L [place] % (Auto) 9.9 H Eos % (Auto) 0.0 Baso % (Auto) 0.2 Lymph # (Auto) 0.91 [place] # (Auto) 1.2 H Eos # (Auto) 0.0 Baso # (Auto) 0.0 Abs Immat Gran (auto) 0.04 H Absolute Neuts (auto) 10.0 H Absolute Nucleated RBC 0.0 Nucleated RBC % 0.0 Sodium 138 Potassium 4.4 Chloride 103 Carbon Dioxide 31 H Anion Gap 4 L BUN 23 H D Creatinine 1.10 H Estim Creat Clear Calc 51 Estimated GFR 50 L Glucose 128 H Calcium 8.2 L Post-procedural complaints: none Patient Feedback: Patient satisfied with anesthetic care.
[2022-06-27 10:43] VITALS: BP 147/79; PULSE 93; RESP 18; TEMP 36.4; O2SAT 97
== END 2022-06-27 11:05 | disposition home or self-care (01) ==
LOC: ANHSURGERY 07:41 → ANH3MEDSUR 11:36
PROVIDERS: Physician Assistant Surgical; PCP Internal Medicine; Visit Provider Orthopaedic Surgery
PROC: (CPT 27130; principal; 2022-06-26 07:30)
DX: M16.12 Unilateral primary osteoarthritis, left hip (principal); K21.9 Gastro-esophageal reflux disease without esophagitis; Z90.49 Acquired absence of other specified parts of digestive tract; Z98.0 Intestinal bypass and anastomosis status; Z87.891 Personal history of nicotine dependence; E66.9 Obesity, unspecified; Z68.34 Body mass index [BMI] 34.0-34.9, adult
CPT/HCPCS: 27130; 36415; 73502; 80048; 85025; 86850; 86900; 86901; 97110; 97116; 97161; 97165; 97530; 97535; A9270; C1776; J0131; J0171; J0330; J0690; J1100; J1170; J1885; J2250; J2270; J2405; J2704; J2710; J2795; J3010; J7030; J7120; J7512

== ENCOUNTER 2022-11-07 09:38 | Outpatient (CLI) | payer MEDICARE, SELFPAY ==
[2022-11-07 10:01] LABS: Creatinine Urine 172.9 mg/dL
[2022-11-07 10:06] LABS: Albumin Level 4.5 g/dL (3.5-5.1); Anion Gap 7 mmol/L (8-16); Blood Urea Nitrogen 27 mg/dL (7-17); Calcium 9.3 mg/dL (8.4-10.2); Carbon Dioxide 32 mmol/L (22-30); Chloride 100 mmol/L (98-107); Estimated Glomerular Filt Rate 38; Glucose 117 mg/dL (65-110); Potassium 4.3 mmol/L (3.4-5.0); Sodium 139 mmol/L (137-145)
[2022-11-07 10:06] LABS: Total Protein Urine Random < 5 mg/dL; Ur Ttl Prot Creatinine Ratio < 0.03 mg/mg (0-0.20)
[2022-11-07 10:17] LABS: Parathyroid Intact 69.9 pg/mL (7.5-53.5)
[2022-11-07 10:56] LABS: Vitamin D 25 Hydroxy 48.1 ng/mL
== END 2022-11-07 09:39 | disposition home or self-care (01) ==
LOC: ANHLAB 09:40
PROVIDERS: PCP Family Medicine; Visit Provider Internal Medicine Nephrology
DX: N25.81 Secondary hyperparathyroidism of renal origin (principal); E55.9 Vitamin D deficiency, unspecified; N18.31 Chronic kidney disease, stage 3a
CPT/HCPCS: 36415; 80069; 82306; 82570; 83970; 84156

== ENCOUNTER 2023-01-29 08:23 | Outpatient (CLI) | payer MEDICARE, SELFPAY ==
--- NOTE | ~2023-01-29 | MM_ITS ---
EXAMINATION: MM screening marlene BI w destin HISTORY: Screening mammogram TECHNIQUE: Craniocaudal and mediolateral oblique 3-D tomosynthesis images were obtained and synthetic 2-D images were generated. CAD analysis was submitted and interpreted. COMPARISON: 11/09/2021, 10/13/2020 BREAST PARENCHYMAL COMPOSITION: The breasts are almost entirely fatty. FINDINGS: No suspicious mass, calcification, or architectural distortion are identified in either paola ast to suggest malignancy. There has been no suspicious interval change. IMPRESSION: 1. No mammographic evidence of malignancy. 2. Recommend routine screening mammography in one year. BI-RADS Category 1: Negative Reviewed, dictated and finalized at location A.
[2023-01-29 09:06] LABS: Creatinine Urine 161.8 mg/dL
[2023-01-29 09:07] LABS: Total Protein Urine Random < 5 mg/dL; Ur Ttl Prot Creatinine Ratio < 0.03 mg/mg (0-0.20)
[2023-01-29 09:12] LABS: Alanine Aminotransferase 13 U/L (6-35); Albumin Level 4.5 g/dL (3.5-5.1); Alkaline Phosphatase 74 U/L (38-126); Anion Gap 7 mmol/L (8-16); Aspartate Amino Transferase 22 U/L (14-36); Bilirubin,Total 0.7 mg/dL (0.2-1.3); Blood Urea Nitrogen 28 mg/dL (7-17); Calcium 9.3 mg/dL (8.4-10.2); Carbon Dioxide 31 mmol/L (22-30); Chloride 103 mmol/L (98-107); Cholesterol 202 mg/dL (0-200); Estimated Glomerular Filt Rate 41; Glucose 109 mg/dL (65-110); HDL Direct 50 mg/dL; Potassium 3.9 mmol/L (3.4-5.0); Sodium 141 mmol/L (137-145); Triglycerides 120 mg/dL (<150)
[2023-01-29 09:22] LABS: Hemoglobin A1C 5.2 % (<5.7)
[2023-01-29 09:24] LABS: LDL Cholesterol Direct 109 mg/dL
[2023-01-29 09:55] LABS: Phosphorus 4.1 mg/dL (2.5-4.5)
== END 2023-01-29 08:24 | disposition home or self-care (01) ==
PROVIDERS: PCP Nurse Practitioner; Referring Provider Internal Medicine Nephrology; Visit Provider Family Medicine
DX: Z12.31 Encounter for screening mammogram for malignant neoplasm of breast (principal); E78.5 Hyperlipidemia, unspecified; N18.32 Chronic kidney disease, stage 3b
CPT/HCPCS: 36415; 77063; 77067; 80053; 80061; 82570; 83036; 84100; 84156

== ENCOUNTER → 2023-03-28 10:12 | Outpatient (CLI) | payer MEDICARE, SELFPAY ==
--- NOTE | ~2023-03-28 | US_ITS ---
US renal BI 03/28/2023 11:10 Procedure: Realtime transabdominal ultrasound of the kidneys and bladder. Indication: Chronic kidney disease Comparison: No prior studies for comparison. Findings: Renal echotexture is normal bilaterally without hydronephrosis, contour deforming mass or r enal calculus. The right kidney measures 8.9 cm and left kidney measures 10.2 cm. There are bilateral renal cysts, largest on the left measuring 3.4 cm. Bladder within normal limits. Impression: 1: Bilateral renal cysts. Reviewed, dictated and finalized at location L. OGY SPECIMEN TECHNICIAN Impression: 1: Bilateral renal cysts.
== END ==
PROVIDERS: PCP Internal Medicine Nephrology; Visit Provider Internal Medicine Nephrology
DX: N18.31 Chronic kidney disease, stage 3a (principal); N28.1 Cyst of kidney, acquired
CPT/HCPCS: 76775

== ENCOUNTER 2023-08-07 08:52 | Outpatient (CLI) | payer MEDICARE, SELFPAY ==
[2023-08-07 10:06] LABS: Alanine Aminotransferase 10 U/L (6-35); Albumin Level 4.4 g/dL (3.5-5.1); Alkaline Phosphatase 74 U/L (38-126); Anion Gap 5 mmol/L (4-12); Aspartate Amino Transferase 20 U/L (14-36); Bilirubin,Total 0.6 mg/dL (0.2-1.3); Blood Urea Nitrogen 25 mg/dL (7-17); Calcium 8.9 mg/dL (8.4-10.2); Carbon Dioxide 30 mmol/L (22-30); Chloride 105 mmol/L (98-107); Cholesterol 167 mg/dL (0-200); Estimated Glomerular Filt Rate 45; Glucose 106 mg/dL (65-110); HDL Direct 49 mg/dL; Potassium 4.1 mmol/L (3.4-5.0); Sodium 140 mmol/L (137-145); Triglycerides 139 mg/dL (<150)
[2023-08-07 10:08] LABS: Hemoglobin A1C 5.3 % (<5.7)
[2023-08-07 10:17] LABS: LDL Cholesterol Direct 100 mg/dL
== END 2023-08-07 08:53 | disposition home or self-care (01) ==
LOC: ANHLAB 08:55
PROVIDERS: PCP Nurse Practitioner; Visit Provider Nurse Practitioner
DX: E11.9 Type 2 diabetes mellitus without complications (principal); Z13.29 Encounter for screening for other suspected endocrine disorder; N18.32 Chronic kidney disease, stage 3b; E78.5 Hyperlipidemia, unspecified
CPT/HCPCS: 36415; 80053; 80061; 83036; 84443

== ENCOUNTER 2023-10-01 12:52 | Outpatient (CLI) | payer MEDICARE, SELFPAY ==
[2023-10-01 13:36] LABS: Albumin Level 4.5 g/dL (3.5-5.1); Anion Gap 4 mmol/L (4-12); Blood Urea Nitrogen 25 mg/dL (7-17); Calcium 9.2 mg/dL (8.4-10.2); Carbon Dioxide 34 mmol/L (22-30); Chloride 104 mmol/L (98-107); Estimated Glomerular Filt Rate 41; Glucose 99 mg/dL (65-110); Phosphorus 3.5 mg/dL (2.5-4.5); Potassium 4.1 mmol/L (3.4-5.0); Sodium 142 mmol/L (137-145)
[2023-10-01 13:52] LABS: Creatinine Urine 161.2 mg/dL; Total Protein Urine Random 8 mg/dL; Ur Ttl Prot Creatinine Ratio 0.05 mg/mg (0-0.20)
[2023-10-01 17:38] LABS: Vitamin D 25 Hydroxy 55.5 ng/mL
== END 2023-10-01 12:53 | disposition home or self-care (01) ==
LOC: ANHLAB 12:56
PROVIDERS: PCP Nurse Practitioner; Visit Provider Internal Medicine Nephrology
DX: E55.9 Vitamin D deficiency, unspecified (principal); N18.32 Chronic kidney disease, stage 3b; N25.81 Secondary hyperparathyroidism of renal origin
CPT/HCPCS: 36415; 80069; 82306; 82570; 83970; 84156

== ENCOUNTER 2024-03-09 07:48 | Outpatient (CLI) | payer MEDICARE, SELFPAY ==
--- NOTE | ~2024-03-09 | MM_ITS ---
EXAMINATION: MM screening marlene BI w destin HISTORY: Screening TECHNIQUE: Craniocaudal and mediolateral oblique 3-D tomosynthesis images were obtained and synthetic 2-D images were generated. CAD analysis was submitted and interpreted. COMPARISON: Comparison to multiple prior studies sequentially, with oldest reviewed study dated 10/13. BREAST PARENCHYMAL COMPOSITION: Not dense: There are scattered areas of fibroglandular density. FINDINGS: There is no evidence of suspicious mass, calcification, or architectural distortion to sugg est malignancy in either breast. There has been no suspicious interval change. IMPRESSION: 1. No mammographic evidence of malignancy. 2. Recommend routine screening mammography in one year. BI-RADS Category 1: Negative Reviewed, dictated and finalized at location [] ICE CAR DRIVER
== END 2024-03-09 07:49 | disposition home or self-care (01) ==
LOC: ANHIMG 07:50
PROVIDERS: PCP Nurse Practitioner; Visit Provider Nurse Practitioner
DX: Z12.31 Encounter for screening mammogram for malignant neoplasm of breast (principal)
CPT/HCPCS: 77063; 77067

== ENCOUNTER 2024-03-18 15:18 | Emergency (ER) | payer MEDICARE, SELFPAY ==
--- NOTE | ~2024-03-18 | XR_ITS ---
EXAMINATION: XR chest 2V DATE: 03/18/2024 16:16 INDICATION: Cough and shortness of breath. TECHNIQUE: Frontal and lateral views of the chest were obtained on 3 radiographs. COMPARISON: None. FINDINGS: There is mild scarring at right lung apex. No pleural effusion or pneumothorax. The heart s ize is normal. IMPRESSION: 1. Mild scarring at right lung apex. Reviewed, dictated and finalized at location A. LAYER
[2024-03-18 15:30] VITALS: BP 148/59; PULSE 78; RESP 16; TEMP 36.6; O2SAT 96
--- NOTE | 2024-03-18 16:07 | ED_ITS ---
HPI - URI/Sore Throat General Chief Complaint: Upper Respiratory Infection Stated Complaint: Sinus Infection Symptoms Time Seen by Provider: 03/18/24 16:02 Source: patient and RN notes reviewed Mode of arrival: ambulatory Limitations: no limitations History of Present Illness HPI Narrative: Patient presents today complaining of a 5 day history of cough, sinus pressure, nasal congestion, and right ear clogging. She also reports some shortness of breath with exertion for the past couple of days. Denies fever. She has tried Mucinex without relief. No history of asthma or COPD. She is a former smoker. Denies any known sick contacts. Related Data Home Medications ?Medication ?Instructions ?Recorded ?Confirmed ?Last Taken ?Type cholecalciferol (vitamin D3) 50 50 mcg PO DAILY 02/16/21 10/09/23 06/23/22 History mcg (2,000 unit) capsule acetaminophen 500 mg oral powder 500 mg PO Q6H PRN 07/27/22 10/09/23 Unknown History packet (Tylenol Extra Strength) Allergies Allergy/AdvReac Type Severity Reaction Status Date / Time metronidazole (From Flagyl) AdvReac Mild loss of Verified 03/18/24 15:58 taste Review of Systems Review of Systems: CONSTITUTIONAL: Denies body aches, fever, chills, or sweats. EYES: Denies visual changes, redness, or discharge. ENT: Denies rhinorrhea, sore throat, or otalgia.+ nasal congestion, right ear clogging, sinus pressure CARDIOVASCULAR: Denies chest pain, palpitations, or edema. RESPIRATORY: + cough, shortness of breath with exertion GASTROINTESTINAL: Denies abdominal pain, nausea, vomiting, or diarrhea. GENITOURINARY: Denies dysuria or hematuria. SKIN: Denies rash, itching, or wounds. MUSCULOSKELETAL: Denies back pain, joint pain, or myalgia. NEUROLOGIC: Denies headache, numbness, tingling, or weakness. PSYCH: Denies depression or anxiety. [facility] Past Medical History Medical History (Reviewed 03/18/24 @ 16:09 by Emilia Rojas, [facility], ) BMI 33.0-33.9,adult BMI 32.0-32.9,adult Stage 3a chronic kidney disease CKD (chronic kidney disease) Allergies Tobacco abuse History of blood clots Chronic GERD Mixed hyperlipidemia Surgical History Surgical History History of total left hip replacement (~06/26/22) History of carpal tunnel release History of colectomy Hand assisted Laparoscopic left colectomy with anastamosis Hx of tonsillectomy Hx of cholecystectomy Family History Family History Mother Hypertension High cholesterol Heart disease Sibling Hypertension Family history of elevated blood lipids Family history of diabetes mellitus in first degree relative Kidney disease Father Cerebrovascular accident Family history of diabetes mellitus in first degree relative Diabetes mellitus Hypertension Family history of arthritis Acute myocardial infarction Social History Social History Smoking packs per day: 1 Smoking cigarettes per day: 20.0 Years smoked: 50 Smoking pack-years: 50.00 Smoking status: Former smoker Second hand tobacco smoke exposure: No Smoking end date: 04/01/20 Alcohol intake: current Alcohol use details: Social Substance use: never Substance use type: does not use Do You Feel Safe in your Home?: Yes Lack of Transportation: No Lack of Food: Never True Current Housing: I Have Housing Concerned About Future Housing: No Difficulty Paying Gas/Electric Bills: No Difficulty Paying for Meds: No Currently Unemployed: No Education: Bachelor's Degree Difficulty w/ Childcare or Family Care: No Living arrangements: alone Occupation/Education: retired 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 Gender identity (if verbalized by the patient): Female Spiritual care concerns: No Comments At time of signature, I have reviewed and agree with nursing past medical, surgical, social and family history unless otherwise noted. Please see nursing chart for further information. There is no relevant family history pertinent to the presenting complaint Exam Narrative: GENERAL: Mildly ill-appearing, well-nourished, and in no acute distress. HEAD: Normocephalic, atraumatic. EYES: EOMI. No redness or drainage. Conjunctivae normal. ENT: Mucous membranes pink and moist. Nares congested. No rhinorrhea. TMs normal bilaterally. Throat normal. Uvula midline. NECK: Normal AROM. Supple. No lymphadenopathy. CHEST: No respiratory distress. Diminished in the right lower lobe, otherwise clear HEART: Regular rate and rhythm. No murmur appreciated. EXTREMITIES: Normal range of motion. No edema. SKIN: Warm, dry, no rash. Capillary refill normal. Normal skin turgor. NEURO: No focal deficits. Alert and oriented x3. Gait steady. PSYCH: Normal affect. No signs of depression or anxiety. Course Course Level of Care: Express Care Visit Vital Signs Vital signs: Vital Signs Temperature 97.9 F 03/18/24 15:30 Pulse Rate 78 03/18/24 15:30 Respiratory Rate 16 03/18/24 15:30 Blood Pressure 148/59 H 03/18/24 15:30 Pulse Oximetry 96 03/18/24 15:30 Temperature 97.9 F 03/18/24 15:30 Pulse Rate 78 03/18/24 15:30 Respiratory Rate 16 03/18/24 15:30 Blood Pressure 148/59 H 03/18/24 15:30 Pulse Oximetry 96 03/18/24 15:30 At time of signature, I have reviewed and agree with nursing past medical, surgical, social and family history unless otherwise noted. Please see nursing chart for further information. There is no relevant family history pertinent to the presenting complaint MDM - URI/Sore Throat MDM Narrative Medical decision making narrative: Chest x-ray negative for pneumonia. Symptoms likely viral in etiology. Discussed [id number] medication use and duration of illness. Patient declines prescription for albuterol inhaler. Prescription for Medrol Dosepak and Tessalon Perles sent to pharmacy. Anticipatory guidance given. ED precautions given. Differential Diagnosis Differential diagnosis: Likely upper respiratory infection, otitis media, sinusitis, viral infection, bronchitis and other (Pneumonia) Imaging Data Radiologist's impression: ITS Impressions Chest X-Ray 03/18/24 16:17 IMPRESSION: 1. Mild scarring at right lung apex. Critical Care Time Critical Care Time Critical Care Time: No Discharge Plan Discharge Clinical Impression: Upper respiratory infection Qualifiers: URI type: unspecified URI Qualified Code(s): J06.9 - Acute upper respiratory infection, unspecified Patient Disposition: Home, Self-Care Condition: Stable Instructions: Upper Respiratory Infection (DC) Additional Instructions: Your chest x-ray is negative for pneumonia today. Your symptoms are likely due to a viral illness, which is not treated with antibiotics. Virus symptoms can last for up to 7-10days. Take Tylenol for pain or fever. Take the Medrol Dosepak and Tessalon Perles for your cough. Rest and stay hydrated. Follow up with your PCP in 5 days if symptoms are not improving. Go to the ER immediately if you develop shortness of breath, difficulty swallowing, development of new fever greater than 100.3, or any other concerning symptoms. Your blood pressure was elevated above 120/80 today at Urgent Care. This puts you above the threshold for follow up. Please schedule a followup visit with your personal physician as soon as possible, for further evaluation and treatment. Even blood pressure exceeding 120/80 may indicate pre-hypertension. Patient Language: Uzbek Prescriptions: New benzonatate 200 mg capsule 200 mg PO TID PRN (Reason: cough) Qty: 20 0RF methylprednisolone [Medrol ([place])] 4 mg tablets,dose pack See Rx Instructions .ROUTE .COMPLEX Qty: 21 0RF Rx Instructions: orally per package directions No Action pantoprazole 40 mg tablet,delayed release (DR/EC) 40 mg PO BID 90 Days Qty: 180 2RF meclizine 25 mg tablet 25 mg PO TID PRN (Reason: dizziness) Qty: 30 0RF Tylenol Extra Strength 500 mg powder in packet 500 mg PO Q6H PRN cholecalciferol (vitamin D3) 50 mcg (2,000 unit) capsule 50 mcg PO DAILY Follow-up/Referrals: Bryce Lao APRN [Primary Care Provider] - Time of Disposition: 16:36
== END 2024-03-18 16:40 | disposition home or self-care (01) ==
PROVIDERS: Emergency Provider Nurse Practitioner; PCP Nurse Practitioner
DX: J06.9 Acute upper respiratory infection, unspecified (principal); Z87.891 Personal history of nicotine dependence; N18.31 Chronic kidney disease, stage 3a; K21.9 Gastro-esophageal reflux disease without esophagitis; E78.2 Mixed hyperlipidemia; Z86.2 Personal history of diseases of the blood and blood-forming organs and certain disorders involving the immune mechanism; Z96.642 Presence of left artificial hip joint
CPT/HCPCS: 71046; 99213; G0463

== ENCOUNTER 2024-06-22 14:43 | Outpatient (CLI) | payer MEDICARE, SELFPAY ==
[2024-06-22 15:43] LABS: Add Urine Microscopic? YES; Appearance Urine Clear (Clear); Bacteria Urine None Seen /hpf; Bilirubin Urine Negative (Negative); Blood Urine Negative (Negative); Color Urine Yellow (Yellow); Glucose Urine UA Negative (Negative); Ketones Urine Negative (Negative); Leukocyte Esterase Ur Trace LEU/UL (Negative); Nitrate Urine Negative (Negative); Non Pathogenic Casts 0-2; Protein Urine Negative (Negative); RBC Urine 0-2 /hpf (0-2); Specific Grav Ur 1.018 (1.001-1.035); Squamous Epithelial Cell Urine None Seen /hpf (Few); Urobilinogen Urine 0.2 mg/dL (<2.0); WBC Urine 0-5 /hpf (0-3)
--- OUTSIDE RECORDS SUMMARY | 2024-06-22 17:01 | XMS_ITS | Clinical Summary ---
Author Organization [facility] Address [address] [place] [phone] Phone Care Team Providers Care Resin Remover Name Role Phone Barry Echavarria DO Primary Care Provider [phone] Allergies Active Allergy Reactions Criticality Noted Date Comments Metronidazole 01/31/2022 Loss of taste Medications Medication Sig Dispensed Refills Start Date End Date Status cholecalciferol (VITAMIN D-3) 50 MCG (1999) capsule Take 2,000 Units by mouth 1 (one) time each day Active pantoprazole (PROTONIX) 40 MG EC tablet Take 40 mg by mouth 1 (one) time each day before breakfast Active Active Problems Problem Noted Date Diagnosed Date Seasonal allergic rhinitis 02/16/2022 Hyperlipidemia 02/16/2022 Gastroesophageal reflux disease 02/16/2022 Chronic kidney disease 02/16/2022 Family History Medical History Relation Comments Diabetes mellitus Father Hypertension Father Stroke Father Heart disease Mother Hyperlipidemia Mother Hypertension Mother Relation Status Comments Father Mother Social History Tobacco Use Types Packs/Day Years Used Date Smoking Tobacco: Former Cigarettes 1 40 0 06/30/1980 - 06/30/2020 Smokeless Tobacco: Never Tobacco Cessation:Counseling Given: Not Answered Alcohol Use Standard Drinks/Week Comments Yes 0 (1 standard drink = 0.6 oz pur e alcohol) social use Sex and Gender Information Value Date Recorded Sex Assigned at Not on file Gender Identity Not on file Sexual Orientation Not on file Last Filed Vital Signs Vital Sign Reading Time Taken Comments Blood Pressure 132/74 02/05/2022 10:15 AM EMBROIDERY DESIGNER Pulse - - Temperature 36.2 C (97.2 F) 02/05/2022 10:15 AM EMBROIDERY DESIGNER Respiratory Rate 18 02/05/2022 10:15 AM EMBROIDERY DESIGNER Oxygen Saturation - - Inhaled Oxygen Concentration - - Weight 96.2 kg (212 lb) 02/05/2022 10:15 AM EMBROIDERY DESIGNER Height 172.7 cm (5' 8 ) 02/05/2022 10:15 AM EMBROIDERY DESIGNER Body Mass Index 32.23 02/05/2022 10:15 AM EMBROIDERY DESIGNER Plan of Treatment Health Maintenance Due Date Last Done Comments Pneumococcal PPSV23/PCV13 65 + Years / High and Highest Risk (1 of 4 - PCV) 1961 Influenza Vaccine (#1) 2023 Care Teams Resin Remover Relationship Specialty Start Date End Date Barry Echavarria DO [address] [place] [place] [id number] PCP - General Internal Medicine 12/21/21
== END 2024-06-22 14:44 | disposition home or self-care (01) ==
LOC: ANHLAB 14:44
PROVIDERS: PCP Nurse Practitioner; Visit Provider Nurse Practitioner
DX: R30.0 Dysuria (principal)
CPT/HCPCS: 81001